=== PATIENT | male | born 1950 | race Two or more races ===

== ENCOUNTER 2021-08-21 19:17 | Inpatient (IN) | payer OTHER ==
[~2021-08-21] VITALS: Ht 170.2 cm; Wt 123.2 kg
[2021-08-21] MEDS ORDERED: SODIUM CHLORIDE 0.9% 1,000 ML IV ONE (20:00)
[2021-08-21 20:46] LABS: Basophils # (auto) 0 10 ^3/uL (0-0.2); Basophils % (auto) 0.1 % (0.0-2.0); Eosinophils # (auto) 0 10 ^3/uL (0-0.8); Hematocrit 49.1 % (41.0-53.0); Hemoglobin 16.2 g/dL (13.5-17.5); Lymphocytes # (auto) 0.9 10 ^3/uL (0.4-5.4); Lymphocytes % (auto) 10.4 % (10.0-50.0); Mean Corpuscular Hemoglobin 29.4 pg (28.0-32.0); Mean Corpuscular Hgb Conc. 32.9 g/dL (32.0-36.0); Mean Corpuscular Volume 89.3 fL (80.0-100.0); Monocytes # (auto) 0.8 10 ^3/uL (0-1.3); Monocytes % (auto) 9.3 % (0.0-12.0); Neutrophils # (auto) 6.7 10 ^3/uL (1.6-8.6); Neutrophils % (auto) 80.2 % (37.0-80.0); Nucleated Red Blood Cells % 0.3 %; Red Cell Distribution Width 13.3 % (11.8-14.3); White Blood Cell 8.4 10^3/uL (4.4-10.8)
[2021-08-21 21:13] LABS: Albumin 2.4 g/dL (3.4-5.0); Calcium 7.4 mg/dL (8.5-10.1); Potassium 4.7 mmol/L (3.5-5.1)
[2021-08-21 21:21] LABS: Bilirubin, Total 1.3 mg/dL (0.2-1.0); Total Protein 5.8 g/dL (6.4-8.2)
[2021-08-21 21:23] LABS: BUN/Creatinine Ratio 44.9; Magnesium 4.2 mg/dL (1.6-2.6)
[2021-08-21] MEDS ORDERED: DEXTROSE (50%) 50ML SYRG IV PRN (22:15)
[2021-08-21] MEDS ORDERED: InsuLIN R (HUMAN) 100 UNITS in SODIUM CHL 0.9% 99 ML IV SCH (22:15)
[2021-08-21] MEDS ORDERED: cefTRIAXone 1GM/50ML D5W 50 ML IV ONE (22:15)
[2021-08-21] MEDS: ACCU-CHEK COMFORT CURVE STRIP VI SCH (23:14)
[2021-08-21] MEDS ORDERED: InsuLIN REG 1unit/0.01ml Soln (100units/ml) ONE (23:30)
[2021-08-21 23:37] LABS: Calcium 7.2 mg/dL (8.5-10.1); Potassium 4.3 mmol/L (3.5-5.1)
[2021-08-21 23:46] LABS: BUN/Creatinine Ratio 44.8
[2021-08-22] MEDS ORDERED: SODIUM CHLORIDE 0.9% 1,000 ML IV ONE (00:30)
[2021-08-22] MEDS: ACCU-CHEK COMFORT CURVE STRIP VI SCH ×7 (00:50→20:58)
[2021-08-22] MEDS ORDERED: InsuLIN R (HUMAN) 100 UNITS in SODIUM CHL 0.9% 99 ML IV SCH (01:30)
[2021-08-22] MEDS ORDERED: DEXTROSE (50%) 50ML SYRG IV PRN ×2 (01:30→05:30)
[2021-08-22] MEDS ORDERED: SODIUM CHLORIDE 0.9% 1,000 ML IV SCH ×2 (04:15→05:30)
[2021-08-22] MEDS ORDERED: ACETAMINOPHEN 500 MG TAB PO ONE (05:15)
[2021-08-22] MEDS ORDERED: NITROGLYCERIN 0.4 MG SL TAB SL PRN (05:30)
[2021-08-22] MEDS ORDERED: MORPHINE SULFATE INJECTION 2 MG/ML SYRG IV PRN (05:30)
[2021-08-22] MEDS ORDERED: ONDANSETRON HCL 4 MG/2 ML VIAL IV PRN (05:30)
[2021-08-22] MEDS ORDERED: ALBUTEROL SULF HFA 90MCG INH 200DOSE IN PRN (05:30)
[2021-08-22] MEDS ORDERED: ACETAMINOPHEN 650 MG RECT SUPP PR ONE (06:00)
[2021-08-22 06:24] LABS: Urine Bacteria NONE SEEN /hpf (None Seen); Urine Blood 2+ /uL (Negative); Urine Hyaline Cast MANY /lpf (0 - 2); Urine Mucus FEW (None Seen); Urine Specific Gravity 1.016 (1.001-1.035); Urine WBC 15 /hpf (0 - 3)
[2021-08-22] MEDS ORDERED: SUCCINYLCHOLINE CHLORIDE 20 MG/ML 10ML VIAL IV ONE (06:45)
[2021-08-22] MEDS ORDERED: ETOMIDATE (2MG/ML) 20ML VIAL IV ONE (06:45)
[2021-08-22] MEDS: MIDAZOLAM DRIP 50 mg/50mL 50 ML IV SCH (07:05)
[2021-08-22 07:08] VITALS: BP 101/70
[2021-08-22] MEDS ORDERED: EPINEPHrine HCL 1 MG/10 ML SYRG ONE (07:09)
[2021-08-22] MEDS: NOREPINEPHRINE 8 MG/250ML KIT 250 ML IV SCH (07:20)
[2021-08-22] MEDS ORDERED: NOREPINEPHRINE 8 MG/250ML KIT 250 ML IV ONE (07:34)
[2021-08-22] MEDS: InsuLIN REG 1unit/0.01ml Soln (100units/ml) SC SCH ×4 (08:26→21:10)
[2021-08-22 08:30] LABS: Lactic Acid w/Reflex 3.4 mmol/L (0.4-2.0)
[2021-08-22 09:02] LABS: Magnesium 2.9 mg/dL (1.6-2.6)
[2021-08-22] MEDS: cefTRIAXone 1GM/50ML D5W 50 ML IV SCH (09:09)
[2021-08-22 09:13] LABS: CRP High Sensitivity 18.1 mg/dL (< 0.3)
[2021-08-22] MEDS: ZINC SULFATE 220mg CAP or TAB PO SCH (09:56)
[2021-08-22] MEDS: ENOXAPARIN SOD 40 MG/0.4 ML SYRINGE SC SCH (09:56)
[2021-08-22] MEDS: CHOLECALCIFEROL (VITD3) 2,000 UNIT CAP/TAB PO SCH (09:56)
[2021-08-22] MEDS: ASCORBIC ACID 1,000 MG TAB PO SCH (09:56)
[2021-08-22] MEDS: DexAMETHasone SOD PHOS 10MG/1ML VIAL INJ IV SCH (09:56)
[2021-08-22] MEDS ORDERED: BUDESONIDE (INHALATION) 180 MCG IH IN SCH (10:00)
[2021-08-22] MEDS ORDERED: PANTOPRAZOLE 40 MG TAB PO SCH (10:00)
[2021-08-22] MEDS ORDERED: ENOXAPARIN SOD 30 MG/0.3 ML SYRINGE SC SCH (10:00)
[2021-08-22 10:10] VITALS: BP 99/54
[2021-08-22] MEDS: AZITHROMYCIN 500MG/ 250ML 250 ML IV SCH (10:16)
[2021-08-22 14:00] VITALS: BP 112/57
[2021-08-22] MEDS: SODIUM CHLORIDE 0.9% 1,000 ML IV SCH (14:26)
[2021-08-22] MEDS ORDERED: PANTOPRAZOLE 40 MG/10 ML VIAL INJ IV ONE (14:30)
[2021-08-22 18:30] VITALS: BP 109/55
[2021-08-22 23:00] VITALS: BP 123/55
[2021-08-23] VITALS (8 sets, daily range): BP systolic 107–133; BP diastolic 50–69
[2021-08-23] MEDS: ACCU-CHEK COMFORT CURVE STRIP VI SCH ×6 (02:25→20:57)
[2021-08-23] MEDS: InsuLIN REG 1unit/0.01ml Soln (100units/ml) SC SCH ×6 (02:32→21:03)
[2021-08-23] MEDS: SODIUM CHLORIDE 0.9% 1,000 ML IV SCH ×2 (03:53→18:38)
[2021-08-23 06:51] LABS: Basophils # (auto) 0.1 10 ^3/uL (0-0.2); Basophils % (auto) 0.6 % (0.0-2.0); Eosinophils # (auto) 0 10 ^3/uL (0-0.8); Hematocrit 42.8 % (41.0-53.0); Hemoglobin 14.6 g/dL (13.5-17.5); Lymphocytes # (auto) 0.5 10 ^3/uL (0.4-5.4); Lymphocytes % (auto) 3.7 % (10.0-50.0); Mean Corpuscular Hemoglobin 29.9 pg (28.0-32.0); Mean Corpuscular Volume 87.9 fL (80.0-100.0); Monocytes # (auto) 0.7 10 ^3/uL (0-1.3); Monocytes % (auto) 5.3 % (0.0-12.0); Neutrophils % (auto) 90.4 % (37.0-80.0); Nucleated Red Blood Cells % 0.1 %; Red Blood Cells 4.87 10^6/uL (4.5-5.90); Red Cell Distribution Width 13.8 % (11.8-14.3); White Blood Cell 13.3 10^3/uL (4.4-10.8)
[2021-08-23 07:09] LABS: Potassium 4.6 mmol/L (3.5-5.1)
[2021-08-23 07:13] LABS: BUN/Creatinine Ratio 51.4; Bilirubin, Total 0.7 mg/dL (0.2-1.0)
[2021-08-23] MEDS: ACETAMINOPHEN 325 MG TAB PO PRN ×2 (07:17→18:39)
[2021-08-23 08:11] LABS: Magnesium 4.6 mg/dL (1.6-2.6)
[2021-08-23] MEDS: NOREPINEPHRINE 8 MG/250ML KIT 250 ML IV SCH (08:30)
[2021-08-23] MEDS: cefTRIAXone 1GM/50ML D5W 50 ML IV SCH (09:21)
[2021-08-23] MEDS: MIDAZOLAM DRIP 50 mg/50mL 50 ML IV SCH ×3 (09:50→18:04)
[2021-08-23] MEDS: DexAMETHasone SOD PHOS 10MG/1ML VIAL INJ IV SCH (09:51)
[2021-08-23] MEDS: CHOLECALCIFEROL (VITD3) 2,000 UNIT CAP/TAB PO SCH (09:52)
[2021-08-23] MEDS: AZITHROMYCIN 500MG/ 250ML 250 ML IV SCH (09:52)
[2021-08-23] MEDS: ASCORBIC ACID 1,000 MG TAB PO SCH (09:52)
[2021-08-23] MEDS: ZINC SULFATE 220mg CAP or TAB PO SCH (09:52)
[2021-08-23] MEDS: ENOXAPARIN SOD 40 MG/0.4 ML SYRINGE SC SCH (09:52)
[2021-08-23] MEDS: PANTOPRAZOLE 40 MG/10 ML VIAL INJ IV SCH (09:52)
[2021-08-23] MEDS: INSULIN LANTUS (GLARGINE) 1 /0.01ml (100units/ml) SC SCH (22:47)
[2021-08-24] MEDS: ACCU-CHEK COMFORT CURVE STRIP VI SCH ×6 (00:24→20:12)
[2021-08-24] MEDS: InsuLIN REG 1unit/0.01ml Soln (100units/ml) SC SCH ×6 (00:31→20:13)
[2021-08-24 01:13] VITALS: BP 127/63
[2021-08-24] MEDS: SODIUM CHLORIDE 0.9% 1,000 ML IV SCH ×2 (06:12→13:20)
[2021-08-24 06:56] VITALS: BP 133/64
[2021-08-24] MEDS: NOREPINEPHRINE 8 MG/250ML KIT 250 ML IV SCH (07:11)
[2021-08-24] MEDS: cefTRIAXone 1GM/50ML D5W 50 ML IV SCH (09:04)
[2021-08-24] MEDS: DexAMETHasone SOD PHOS 10MG/1ML VIAL INJ IV SCH (10:00)
[2021-08-24] MEDS: PANTOPRAZOLE 40 MG/10 ML VIAL INJ IV SCH (10:00)
[2021-08-24] MEDS: ZINC SULFATE 220mg CAP or TAB PO SCH (10:00)
[2021-08-24] MEDS: ENOXAPARIN SOD 40 MG/0.4 ML SYRINGE SC SCH (10:00)
[2021-08-24] MEDS: CHOLECALCIFEROL (VITD3) 2,000 UNIT CAP/TAB PO SCH (10:00)
[2021-08-24] MEDS: INSULIN LANTUS (GLARGINE) 1 /0.01ml (100units/ml) SC SCH ×2 (10:00→22:04)
[2021-08-24] MEDS: ASCORBIC ACID 1,000 MG TAB PO SCH (10:00)
[2021-08-24 10:15] VITALS: BP 133/66
[2021-08-24] MEDS: AZITHROMYCIN 500MG/ 250ML 250 ML IV SCH (11:44)
[2021-08-24] MEDS: MIDAZOLAM DRIP 50 mg/50mL 50 ML IV SCH ×2 (11:48→20:23)
[2021-08-24 14:00] VITALS: BP 128/65
[2021-08-24 18:34] VITALS: BP 153/73
[2021-08-24 22:14] VITALS: BP 125/64
[2021-08-25] VITALS (8 sets, daily range): BP systolic 111–159; BP diastolic 63–76
[2021-08-25] MEDS: ACCU-CHEK COMFORT CURVE STRIP VI SCH ×7 (00:41→23:40)
[2021-08-25] MEDS: InsuLIN REG 1unit/0.01ml Soln (100units/ml) SC SCH ×7 (00:43→23:57)
[2021-08-25] MEDS: MIDAZOLAM DRIP 50 mg/50mL 50 ML IV SCH ×3 (00:46→09:19)
[2021-08-25] MEDS: ACETAMINOPHEN 500 MG TAB PO PRN ×4 (03:07→23:18)
[2021-08-25 06:09] LABS: Calcium 7.6 mg/dL (8.5-10.1)
[2021-08-25 06:13] LABS: BUN/Creatinine Ratio 61.5
[2021-08-25 06:26] LABS: Basophils # (auto) 0 10 ^3/uL (0-0.2); Basophils % (auto) 0.1 % (0.0-2.0); Eosinophils # (auto) 0 10 ^3/uL (0-0.8); Hematocrit 41.5 % (41.0-53.0); Hemoglobin 14.2 g/dL (13.5-17.5); Lymphocytes # (auto) 0.3 10 ^3/uL (0.4-5.4); Lymphocytes % (auto) 4.2 % (10.0-50.0); Mean Corpuscular Hemoglobin 30.4 pg (28.0-32.0); Mean Corpuscular Hgb Conc. 34.2 g/dL (32.0-36.0); Mean Corpuscular Volume 89.1 fL (80.0-100.0); Monocytes # (auto) 0.7 10 ^3/uL (0-1.3); Neutrophils % (auto) 86.7 % (37.0-80.0); Nucleated Red Blood Cells % 0.3 %; Red Blood Cells 4.66 10^6/uL (4.5-5.90); Red Cell Distribution Width 13.6 % (11.8-14.3); White Blood Cell 8.1 10^3/uL (4.4-10.8)
[2021-08-25 06:38] LABS: Magnesium 4.7 mg/dL (1.6-2.6)
[2021-08-25] MEDS: NOREPINEPHRINE 8 MG/250ML KIT 250 ML IV SCH (07:00)
[2021-08-25] MEDS: SODIUM CHLORIDE 0.9% 1,000 ML IV SCH (09:21)
[2021-08-25] MEDS: cefTRIAXone 1GM/50ML D5W 50 ML IV SCH (09:49)
[2021-08-25] MEDS: CHOLECALCIFEROL (VITD3) 2,000 UNIT CAP/TAB PO SCH (09:54)
[2021-08-25] MEDS: ASCORBIC ACID 1,000 MG TAB PO SCH (09:54)
[2021-08-25] MEDS: DexAMETHasone SOD PHOS 10MG/1ML VIAL INJ IV SCH (09:54)
[2021-08-25] MEDS: PANTOPRAZOLE 40 MG/10 ML VIAL INJ IV SCH (10:06)
[2021-08-25] MEDS: INSULIN LANTUS (GLARGINE) 1 /0.01ml (100units/ml) SC SCH ×2 (10:07→22:03)
[2021-08-25] MEDS: ZINC SULFATE 220mg CAP or TAB PO SCH (10:12)
[2021-08-25] MEDS: ENOXAPARIN SOD 40 MG/0.4 ML SYRINGE SC SCH (10:12)
[2021-08-25] MEDS: AZITHROMYCIN 500MG/ 250ML 250 ML IV SCH (10:12)
[2021-08-25] MEDS: SOD CHL 0.45% 1,000 ML IV SCH (12:49)
[2021-08-26] VITALS (64 sets, daily range): BP systolic 83–138; BP diastolic 36–65
[2021-08-26] MEDS: SOD CHL 0.45% 1,000 ML IV SCH (00:13)
[2021-08-26] MEDS: InsuLIN REG 1unit/0.01ml Soln (100units/ml) SC SCH ×5 (04:00→20:00)
[2021-08-26] MEDS: ACCU-CHEK COMFORT CURVE STRIP VI SCH ×5 (04:00→20:00)
[2021-08-26 06:59] LABS: Basophils # (auto) 0 10 ^3/uL (0-0.2); Basophils % (auto) 0.1 % (0.0-2.0); Eosinophils # (auto) 0 10 ^3/uL (0-0.8); Hematocrit 41.8 % (41.0-53.0); Hemoglobin 13.8 g/dL (13.5-17.5); Lymphocytes # (auto) 0.3 10 ^3/uL (0.4-5.4); Lymphocytes % (auto) 4.9 % (10.0-50.0); Mean Corpuscular Hemoglobin 29.7 pg (28.0-32.0); Mean Corpuscular Hgb Conc. 32.9 g/dL (32.0-36.0); Mean Corpuscular Volume 90.2 fL (80.0-100.0); Monocytes # (auto) 0.3 10 ^3/uL (0-1.3); Neutrophils # (auto) 5.4 10 ^3/uL (1.6-8.6); Nucleated Red Blood Cells % 0.3 %; Red Blood Cells 4.63 10^6/uL (4.5-5.90); Red Cell Distribution Width 13.8 % (11.8-14.3)
[2021-08-26 07:03] LABS: Potassium 4.9 mmol/L (3.5-5.1)
[2021-08-26 07:18] LABS: Albumin 1.7 g/dL (3.4-5.0); BUN/Creatinine Ratio 57.1; Bilirubin, Total 0.8 mg/dL (0.2-1.0); CRP High Sensitivity 14.4 mg/dL (< 0.3); Total Protein 5.9 g/dL (6.4-8.2)
[2021-08-26 07:29] LABS: Magnesium 4.5 mg/dL (1.6-2.6)
[2021-08-26] MEDS: NOREPINEPHRINE 8 MG/250ML KIT 250 ML IV SCH (07:30)
[2021-08-26] MEDS ORDERED: REMDESIVIR PER PHARMACY 0 ML IV SCH (09:15)
[2021-08-26] MEDS ORDERED: D5W 5% 1,000 ML IV SCH (09:15)
[2021-08-26] MEDS: cefTRIAXone 1GM/50ML D5W 50 ML IV SCH (09:56)
[2021-08-26] MEDS: DexAMETHasone SOD PHOS 10MG/1ML VIAL INJ IV SCH (09:58)
[2021-08-26] MEDS: PANTOPRAZOLE 40 MG/10 ML VIAL INJ IV SCH (09:58)
[2021-08-26] MEDS: MIDAZOLAM DRIP 50 mg/50mL 50 ML IV SCH ×4 (09:58→22:29)
[2021-08-26] MEDS: AZITHROMYCIN 500MG/ 250ML 250 ML IV SCH (09:58)
[2021-08-26] MEDS: ENOXAPARIN SOD 40 MG/0.4 ML SYRINGE SC SCH (09:59)
[2021-08-26] MEDS: CHOLECALCIFEROL (VITD3) 2,000 UNIT CAP/TAB PO SCH (09:59)
[2021-08-26] MEDS: ZINC SULFATE 220mg CAP or TAB PO SCH (09:59)
[2021-08-26] MEDS: ASCORBIC ACID 1,000 MG TAB PO SCH (09:59)
[2021-08-26] MEDS: INSULIN LANTUS (GLARGINE) 1 /0.01ml (100units/ml) SC SCH ×2 (10:04→21:48)
[2021-08-26] MEDS ORDERED: PROPOFOL 100 ML IV ONE (11:51)
[2021-08-26] MEDS: PROPOFOL 100 ML IV SCH ×2 (12:21→16:47)
[2021-08-26] MEDS ORDERED: REMDESIVIR 200 MG in NS 210ml LOADING DOSE ADULT IV ONE (15:00)
[2021-08-26] MEDS ORDERED: VANCOMYCIN PER PHARMACY 0 MG IV SCH (18:00)
[2021-08-26] MEDS: VANCOMYCIN 1GM/250ML 250 ML IV SCH (18:40)
[2021-08-27] VITALS (102 sets, daily range): BP systolic 99–142; BP diastolic 35–58
[2021-08-27] MEDS: NOREPINEPHRINE 8 MG/250ML KIT 250 ML IV SCH (00:06)
[2021-08-27] MEDS: MIDAZOLAM DRIP 50 mg/50mL 50 ML IV SCH ×2 (02:38→22:00)
[2021-08-27] MEDS: ACCU-CHEK COMFORT CURVE STRIP VI SCH ×6 (04:00→20:00)
[2021-08-27] MEDS: InsuLIN REG 1unit/0.01ml Soln (100units/ml) SC SCH ×6 (04:00→20:00)
[2021-08-27 04:31] LABS: Basophils # (auto) 0 10 ^3/uL (0-0.2); Basophils % (auto) 0.5 % (0.0-2.0); Eosinophils # (auto) 0 10 ^3/uL (0-0.8); Eosinophils % (auto) 0.5 % (0.0-7.0); Hematocrit 41.4 % (41.0-53.0); Hemoglobin 13.4 g/dL (13.5-17.5); Lymphocytes # (auto) 0.3 10 ^3/uL (0.4-5.4); Lymphocytes % (auto) 4.1 % (10.0-50.0); Mean Corpuscular Hemoglobin 29.3 pg (28.0-32.0); Mean Corpuscular Hgb Conc. 32.4 g/dL (32.0-36.0); Mean Corpuscular Volume 90.6 fL (80.0-100.0); Monocytes # (auto) 0.3 10 ^3/uL (0-1.3); Monocytes % (auto) 3.9 % (0.0-12.0); Neutrophils # (auto) 7.1 10 ^3/uL (1.6-8.6); Nucleated Red Blood Cells % 0.1 %; Red Blood Cells 4.57 10^6/uL (4.5-5.90); Red Cell Distribution Width 14.3 % (11.8-14.3); White Blood Cell 7.8 10^3/uL (4.4-10.8)
[2021-08-27 04:57] LABS: Albumin 1.5 g/dL (3.4-5.0); BUN/Creatinine Ratio 60.9; Calcium 7.8 mg/dL (8.5-10.1)
[2021-08-27 05:00] LABS: Bilirubin, Total 0.6 mg/dL (0.2-1.0); Total Protein 5.1 g/dL (6.4-8.2)
[2021-08-27 05:08] LABS: Potassium 5.7 mmol/L (3.5-5.1)
[2021-08-27] MEDS ORDERED: SODIUM ZIRCONIUM CYCL 10 GM PAK GT ONE ×2 (05:45→19:30)
[2021-08-27] MEDS ORDERED: SODIUM ZIRCONIUM CYCL 10 GM PAK ONE (05:52)
[2021-08-27] MEDS: FREE WATER GT SCH ×5 (06:00→22:00)
[2021-08-27] MEDS: PROPOFOL 100 ML IV SCH ×2 (06:13→21:00)
[2021-08-27] MEDS: VANCOMYCIN 1GM/250ML 250 ML IV SCH ×2 (06:32→19:05)
[2021-08-27] MEDS: SODIUM ZIRCONIUM CYCL 10 GM PAK GT SCH (12:37)
[2021-08-27] MEDS: cefTRIAXone 1GM/50ML D5W 50 ML IV SCH (12:37)
[2021-08-27] MEDS: DexAMETHasone SOD PHOS 10MG/1ML VIAL INJ IV SCH (12:38)
[2021-08-27] MEDS: PANTOPRAZOLE 40 MG/10 ML VIAL INJ IV SCH (12:38)
[2021-08-27] MEDS: ASCORBIC ACID 1,000 MG TAB PO SCH (12:38)
[2021-08-27] MEDS: ZINC SULFATE 220mg CAP or TAB PO SCH (12:38)
[2021-08-27] MEDS: CHOLECALCIFEROL (VITD3) 2,000 UNIT CAP/TAB PO SCH (12:39)
[2021-08-27] MEDS: INSULIN LANTUS (GLARGINE) 1 /0.01ml (100units/ml) SC SCH ×2 (12:39→22:00)
[2021-08-27] MEDS: REMDESIVIR 100mg 100 MG in SODIUM CHL 0.9% 230 ML IV SCH (15:00)
[2021-08-27] MEDS: DOPamine 1600MCG/ML D5W 250 ML IV SCH (19:30)
[2021-08-27] MEDS ORDERED: Glucerna 1.2 Cal 1Liter BOTTLE GT SCH (19:45)
[2021-08-28] VITALS (101 sets, daily range): BP systolic 98–138; BP diastolic 39–65
[2021-08-28] MEDS: FREE WATER GT SCH ×6 (02:00→21:50)
[2021-08-28] MEDS: MIDAZOLAM DRIP 50 mg/50mL 50 ML IV SCH ×4 (02:15→18:45)
[2021-08-28 03:45] LABS: Basophils # (auto) 0 10 ^3/uL (0-0.2); Basophils % (auto) 0.1 % (0.0-2.0); Eosinophils # (auto) 0 10 ^3/uL (0-0.8); Hematocrit 40.9 % (41.0-53.0); Hemoglobin 13.3 g/dL (13.5-17.5); Lymphocytes # (auto) 0.2 10 ^3/uL (0.4-5.4); Lymphocytes % (auto) 2.7 % (10.0-50.0); Mean Corpuscular Hemoglobin 29.5 pg (28.0-32.0); Mean Corpuscular Hgb Conc. 32.6 g/dL (32.0-36.0); Mean Corpuscular Volume 90.5 fL (80.0-100.0); Monocytes # (auto) 0.2 10 ^3/uL (0-1.3); Monocytes % (auto) 3.1 % (0.0-12.0); Neutrophils # (auto) 6.8 10 ^3/uL (1.6-8.6); Neutrophils % (auto) 94.1 % (37.0-80.0); Nucleated Red Blood Cells % 0.1 %; Red Blood Cells 4.51 10^6/uL (4.5-5.90); Red Cell Distribution Width 13.5 % (11.8-14.3); White Blood Cell 7.2 10^3/uL (4.4-10.8)
[2021-08-28 04:00] LABS: Albumin 1.6 g/dL (3.4-5.0); Magnesium 3.4 mg/dL (1.6-2.6); Potassium 5.4 mmol/L (3.5-5.1)
[2021-08-28] MEDS: InsuLIN REG 1unit/0.01ml Soln (100units/ml) SC SCH ×6 (04:00→19:44)
[2021-08-28] MEDS: ACCU-CHEK COMFORT CURVE STRIP VI SCH ×6 (04:00→19:45)
[2021-08-28 04:03] LABS: BUN/Creatinine Ratio 68.3
[2021-08-28 04:15] LABS: Bilirubin, Total 0.4 mg/dL (0.2-1.0)
[2021-08-28] MEDS: PROPOFOL 100 ML IV SCH ×2 (05:00→22:30)
[2021-08-28] MEDS: VANCOMYCIN 1GM/250ML 250 ML IV SCH ×2 (06:47→19:00)
[2021-08-28] MEDS: NOREPINEPHRINE 8 MG/250ML KIT 250 ML IV SCH (07:30)
[2021-08-28] MEDS: DOPamine 1600MCG/ML D5W 250 ML IV SCH (08:47)
[2021-08-28] MEDS: cefTRIAXone 1GM/50ML D5W 50 ML IV SCH (09:13)
[2021-08-28] MEDS: SODIUM ZIRCONIUM CYCL 10 GM PAK GT SCH (09:58)
[2021-08-28] MEDS: CHOLECALCIFEROL (VITD3) 2,000 UNIT CAP/TAB PO SCH (09:58)
[2021-08-28] MEDS: PANTOPRAZOLE 40 MG/10 ML VIAL INJ IV SCH (09:58)
[2021-08-28] MEDS: ZINC SULFATE 220mg CAP or TAB PO SCH (09:59)
[2021-08-28] MEDS: DexAMETHasone SOD PHOS 10MG/1ML VIAL INJ IV SCH (09:59)
[2021-08-28] MEDS: ASCORBIC ACID 1,000 MG TAB PO SCH (09:59)
[2021-08-28] MEDS: ENOXAPARIN SOD 30 MG/0.3 ML SYRINGE SC SCH (10:00)
[2021-08-28] MEDS: INSULIN LANTUS (GLARGINE) 1 /0.01ml (100units/ml) SC SCH ×2 (10:58→21:50)
[2021-08-28] MEDS: REMDESIVIR 100mg 100 MG in SODIUM CHL 0.9% 230 ML IV SCH (14:53)
[2021-08-28] MEDS ORDERED: FUROSEMIDE 40 MG/4 ML VIAL IV ONE (18:45)
[2021-08-29] VITALS (100 sets, daily range): BP systolic 85–152; BP diastolic 44–65
[2021-08-29] MEDS: DOPamine 1600MCG/ML D5W 250 ML IV SCH ×2 (00:47→11:21)
[2021-08-29] MEDS: FREE WATER GT SCH ×6 (02:00→22:00)
[2021-08-29 03:51] LABS: Basophils # (auto) 0 10 ^3/uL (0-0.2); Basophils % (auto) 0.2 % (0.0-2.0); Eosinophils # (auto) 0 10 ^3/uL (0-0.8); Eosinophils % (auto) 0.1 % (0.0-7.0); Hematocrit 40.1 % (41.0-53.0); Hemoglobin 13.5 g/dL (13.5-17.5); Lymphocytes # (auto) 0.3 10 ^3/uL (0.4-5.4); Lymphocytes % (auto) 4.2 % (10.0-50.0); Mean Corpuscular Hemoglobin 30.2 pg (28.0-32.0); Mean Corpuscular Hgb Conc. 33.7 g/dL (32.0-36.0); Mean Corpuscular Volume 89.7 fL (80.0-100.0); Monocytes # (auto) 0.3 10 ^3/uL (0-1.3); Monocytes % (auto) 4.5 % (0.0-12.0); Red Blood Cells 4.48 10^6/uL (4.5-5.90); Red Cell Distribution Width 13.6 % (11.8-14.3); White Blood Cell 7.7 10^3/uL (4.4-10.8)
[2021-08-29] MEDS: MIDAZOLAM DRIP 50 mg/50mL 50 ML IV SCH ×4 (04:00→23:30)
[2021-08-29] MEDS: ACCU-CHEK COMFORT CURVE STRIP VI SCH ×6 (04:00→20:00)
[2021-08-29] MEDS: InsuLIN REG 1unit/0.01ml Soln (100units/ml) SC SCH ×6 (04:00→20:00)
[2021-08-29 04:09] LABS: Albumin 1.5 g/dL (3.4-5.0); Calcium 7.8 mg/dL (8.5-10.1); Magnesium 3.2 mg/dL (1.6-2.6); Potassium 4.9 mmol/L (3.5-5.1)
[2021-08-29 04:11] LABS: BUN/Creatinine Ratio 68.1
[2021-08-29 04:14] LABS: Bilirubin, Total 0.9 mg/dL (0.2-1.0); Total Protein 4.9 g/dL (6.4-8.2)
[2021-08-29] MEDS: PROPOFOL 100 ML IV SCH ×4 (06:00→18:21)
[2021-08-29] MEDS: VANCOMYCIN 1GM/250ML 250 ML IV SCH ×2 (06:57→18:20)
[2021-08-29] MEDS: NOREPINEPHRINE 8 MG/250ML KIT 250 ML IV SCH (07:30)
[2021-08-29] MEDS: SODIUM ZIRCONIUM CYCL 10 GM PAK GT SCH (08:50)
[2021-08-29] MEDS: ASCORBIC ACID 1,000 MG TAB PO SCH (08:51)
[2021-08-29] MEDS: CHOLECALCIFEROL (VITD3) 2,000 UNIT CAP/TAB PO SCH (08:52)
[2021-08-29] MEDS: ACETAMINOPHEN 325 MG TAB PO PRN (08:52)
[2021-08-29] MEDS: ZINC SULFATE 220mg CAP or TAB PO SCH (08:52)
[2021-08-29] MEDS: PANTOPRAZOLE 40 MG/10 ML VIAL INJ IV SCH (08:54)
[2021-08-29] MEDS: cefTRIAXone 1GM/50ML D5W 50 ML IV SCH (08:54)
[2021-08-29] MEDS: ENOXAPARIN SOD 30 MG/0.3 ML SYRINGE SC SCH (08:55)
[2021-08-29] MEDS: DexAMETHasone SOD PHOS 10MG/1ML VIAL INJ IV SCH (08:55)
[2021-08-29] MEDS ORDERED: FUROSEMIDE 40 MG/4 ML VIAL IV ONE (10:30)
[2021-08-29] MEDS: INSULIN LANTUS (GLARGINE) 1 /0.01ml (100units/ml) SC SCH ×2 (12:29→22:00)
[2021-08-30] VITALS (100 sets, daily range): BP systolic 65–139; BP diastolic 39–99
[2021-08-30] MEDS: DOPamine 1600MCG/ML D5W 250 ML IV SCH ×2 (00:38→13:55)
[2021-08-30] MEDS: FREE WATER GT SCH ×6 (02:00→22:33)
[2021-08-30] MEDS: InsuLIN REG 1unit/0.01ml Soln (100units/ml) SC SCH ×6 (03:40→20:10)
[2021-08-30] MEDS: ACCU-CHEK COMFORT CURVE STRIP VI SCH ×6 (03:48→20:09)
[2021-08-30] MEDS: PROPOFOL 100 ML IV SCH ×6 (03:49→22:38)
[2021-08-30 04:55] LABS: Basophils # (auto) 0 10 ^3/uL (0-0.2); Basophils % (auto) 0.1 % (0.0-2.0); Eosinophils # (auto) 0.1 10 ^3/uL (0-0.8); Eosinophils % (auto) 0.6 % (0.0-7.0); Hematocrit 41.1 % (41.0-53.0); Hemoglobin 13.8 g/dL (13.5-17.5); Lymphocytes # (auto) 0.4 10 ^3/uL (0.4-5.4); Lymphocytes % (auto) 3.9 % (10.0-50.0); Mean Corpuscular Hemoglobin 29.7 pg (28.0-32.0); Mean Corpuscular Hgb Conc. 33.5 g/dL (32.0-36.0); Mean Corpuscular Volume 88.8 fL (80.0-100.0); Monocytes # (auto) 0.3 10 ^3/uL (0-1.3); Monocytes % (auto) 2.7 % (0.0-12.0); Neutrophils # (auto) 10.4 10 ^3/uL (1.6-8.6); Neutrophils % (auto) 92.7 % (37.0-80.0); Nucleated Red Blood Cells % 0.1 %; Red Blood Cells 4.63 10^6/uL (4.5-5.90); Red Cell Distribution Width 13.6 % (11.8-14.3); White Blood Cell 11.3 10^3/uL (4.4-10.8)
[2021-08-30 05:28] LABS: Albumin 1.4 g/dL (3.4-5.0); BUN/Creatinine Ratio 76.7; Magnesium 3.2 mg/dL (1.6-2.6); Potassium 4.5 mmol/L (3.5-5.1)
[2021-08-30 05:31] LABS: Bilirubin, Total 0.9 mg/dL (0.2-1.0); Total Protein 4.8 g/dL (6.4-8.2)
[2021-08-30] MEDS: ACETAMINOPHEN 500 MG TAB PO PRN (06:08)
[2021-08-30] MEDS: VANCOMYCIN 1GM/250ML 250 ML IV SCH ×2 (06:30→18:36)
[2021-08-30] MEDS: NOREPINEPHRINE 8 MG/250ML KIT 250 ML IV SCH ×2 (07:30→22:37)
[2021-08-30] MEDS: SODIUM ZIRCONIUM CYCL 10 GM PAK GT SCH (08:22)
[2021-08-30] MEDS: CHOLECALCIFEROL (VITD3) 2,000 UNIT CAP/TAB PO SCH (09:09)
[2021-08-30] MEDS: ASCORBIC ACID 1,000 MG TAB PO SCH (09:09)
[2021-08-30] MEDS: PANTOPRAZOLE 40 MG/10 ML VIAL INJ IV SCH (09:09)
[2021-08-30] MEDS: ZINC SULFATE 220mg CAP or TAB PO SCH (09:09)
[2021-08-30] MEDS: DexAMETHasone SOD PHOS 10MG/1ML VIAL INJ IV SCH (09:09)
[2021-08-30] MEDS: FUROSEMIDE 40 MG/4 ML VIAL IV SCH (09:10)
[2021-08-30] MEDS: ENOXAPARIN SOD 30 MG/0.3 ML SYRINGE SC SCH (09:10)
[2021-08-30] MEDS: cefTRIAXone 1GM/50ML D5W 50 ML IV SCH (09:10)
[2021-08-30] MEDS: INSULIN LANTUS (GLARGINE) 1 /0.01ml (100units/ml) SC SCH ×2 (10:28→22:35)
[2021-08-30] MEDS ORDERED: LACTULOSE 20Gm/30ML SOLN PO ONE (11:00)
[2021-08-30] MEDS ORDERED: DOCUSATE ORAL LIQUID 100 MG/10 ML UD GT ONE (11:00)
[2021-08-30] MEDS: MIDAZOLAM DRIP 50 mg/50mL 50 ML IV SCH ×2 (11:10→17:07)
[2021-08-30] MEDS: DOCUSATE ORAL LIQUID 100 MG/10 ML UD GT SCH (22:34)
[2021-08-31] VITALS (96 sets, daily range): BP systolic 81–180; BP diastolic 42–113
[2021-08-31] MEDS: ACCU-CHEK COMFORT CURVE STRIP VI SCH ×6 (00:15→20:16)
[2021-08-31] MEDS: InsuLIN REG 1unit/0.01ml Soln (100units/ml) SC SCH ×6 (00:16→20:16)
[2021-08-31] MEDS: MIDAZOLAM DRIP 50 mg/50mL 50 ML IV SCH ×6 (00:17→23:07)
[2021-08-31] MEDS: PROPOFOL 100 ML IV SCH ×7 (00:18→23:42)
[2021-08-31] MEDS: FREE WATER GT SCH ×6 (02:21→22:06)
[2021-08-31] MEDS: DOPamine 1600MCG/ML D5W 250 ML IV SCH ×2 (03:12→16:29)
[2021-08-31] MEDS: ACETAMINOPHEN 500 MG TAB PO PRN (04:30)
[2021-08-31 05:13] LABS: Basophils # (auto) 0 10 ^3/uL (0-0.2); Basophils % (auto) 0.1 % (0.0-2.0); Eosinophils # (auto) 0.1 10 ^3/uL (0-0.8); Eosinophils % (auto) 0.5 % (0.0-7.0); Hematocrit 41.4 % (41.0-53.0); Hemoglobin 13.8 g/dL (13.5-17.5); Lymphocytes # (auto) 0.3 10 ^3/uL (0.4-5.4); Lymphocytes % (auto) 2.5 % (10.0-50.0); Mean Corpuscular Hemoglobin 29.8 pg (28.0-32.0); Mean Corpuscular Hgb Conc. 33.3 g/dL (32.0-36.0); Mean Corpuscular Volume 89.5 fL (80.0-100.0); Monocytes # (auto) 0.2 10 ^3/uL (0-1.3); Monocytes % (auto) 1.7 % (0.0-12.0); Neutrophils # (auto) 10.9 10 ^3/uL (1.6-8.6); Neutrophils % (auto) 95.2 % (37.0-80.0); Nucleated Red Blood Cells % 0.2 %; Red Blood Cells 4.62 10^6/uL (4.5-5.90); Red Cell Distribution Width 13.5 % (11.8-14.3); White Blood Cell 11.4 10^3/uL (4.4-10.8)
[2021-08-31 05:43] LABS: Calcium 8.8 mg/dL (8.5-10.1); Magnesium 2.9 mg/dL (1.6-2.6); Potassium 4.5 mmol/L (3.5-5.1)
[2021-08-31] MEDS: VANCOMYCIN 1GM/250ML 250 ML IV SCH ×2 (06:33→18:31)
[2021-08-31] MEDS: cefTRIAXone 1GM/50ML D5W 50 ML IV SCH (09:01)
[2021-08-31] MEDS: DOCUSATE ORAL LIQUID 100 MG/10 ML UD GT SCH ×2 (09:02→22:06)
[2021-08-31] MEDS: LACTULOSE 20Gm/30ML SOLN PO SCH (09:02)
[2021-08-31] MEDS: CHOLECALCIFEROL (VITD3) 2,000 UNIT CAP/TAB PO SCH (09:02)
[2021-08-31] MEDS: ZINC SULFATE 220mg CAP or TAB PO SCH (09:02)
[2021-08-31] MEDS: PANTOPRAZOLE 40 MG/10 ML VIAL INJ IV SCH (09:02)
[2021-08-31] MEDS: ASCORBIC ACID 1,000 MG TAB PO SCH (09:02)
[2021-08-31] MEDS: FUROSEMIDE 40 MG/4 ML VIAL IV SCH (09:03)
[2021-08-31] MEDS: DexAMETHasone SOD PHOS 10MG/1ML VIAL INJ IV SCH (09:03)
[2021-08-31] MEDS: SODIUM ZIRCONIUM CYCL 10 GM PAK GT SCH (10:00)
[2021-08-31] MEDS: ENOXAPARIN SOD 30 MG/0.3 ML SYRINGE SC SCH (10:00)
[2021-08-31] MEDS: INSULIN LANTUS (GLARGINE) 1 /0.01ml (100units/ml) SC SCH ×2 (10:10→22:07)
[2021-08-31] MEDS: NOREPINEPHRINE 8 MG/250ML KIT 250 ML IV SCH (16:12)
[2021-09-01] VITALS (88 sets, daily range): BP systolic 107–133; BP diastolic 47–59
[2021-09-01] MEDS: ACCU-CHEK COMFORT CURVE STRIP VI SCH ×6 (00:34→20:19)
[2021-09-01] MEDS: InsuLIN REG 1unit/0.01ml Soln (100units/ml) SC SCH ×6 (00:35→20:21)
[2021-09-01] MEDS: FREE WATER GT SCH ×6 (02:19→21:58)
[2021-09-01] MEDS: PROPOFOL 100 ML IV SCH ×4 (02:19→23:02)
[2021-09-01 04:33] LABS: Basophils # (auto) 0.1 10 ^3/uL (0-0.2); Basophils % (auto) 0.6 % (0.0-2.0); Eosinophils # (auto) 0 10 ^3/uL (0-0.8); Eosinophils % (auto) 0.2 % (0.0-7.0); Hematocrit 37.9 % (41.0-53.0); Hemoglobin 12.6 g/dL (13.5-17.5); Lymphocytes # (auto) 0.4 10 ^3/uL (0.4-5.4); Lymphocytes % (auto) 2.2 % (10.0-50.0); Mean Corpuscular Hemoglobin 29.6 pg (28.0-32.0); Mean Corpuscular Hgb Conc. 33.2 g/dL (32.0-36.0); Mean Corpuscular Volume 89.2 fL (80.0-100.0); Monocytes # (auto) 0.6 10 ^3/uL (0-1.3); Monocytes % (auto) 3.1 % (0.0-12.0); Neutrophils # (auto) 18.6 10 ^3/uL (1.6-8.6); Neutrophils % (auto) 93.9 % (37.0-80.0); Red Blood Cells 4.25 10^6/uL (4.5-5.90); Red Cell Distribution Width 13.6 % (11.8-14.3); White Blood Cell 19.8 10^3/uL (4.4-10.8)
[2021-09-01 04:52] LABS: Albumin 1.2 g/dL (3.4-5.0); BUN/Creatinine Ratio 65.8; Potassium 4.9 mmol/L (3.5-5.1)
[2021-09-01 04:55] LABS: Bilirubin, Total 0.8 mg/dL (0.2-1.0); Total Protein 5.5 g/dL (6.4-8.2)
[2021-09-01] MEDS: DOPamine 1600MCG/ML D5W 250 ML IV SCH ×2 (04:57→19:03)
[2021-09-01] MEDS: VANCOMYCIN 1GM/250ML 250 ML IV SCH ×2 (06:03→19:37)
[2021-09-01] MEDS: MIDAZOLAM DRIP 50 mg/50mL 50 ML IV SCH ×3 (06:43→23:03)
[2021-09-01] MEDS: cefTRIAXone 1GM/50ML D5W 50 ML IV SCH (08:07)
[2021-09-01] MEDS: DOCUSATE ORAL LIQUID 100 MG/10 ML UD GT SCH ×2 (08:09→21:59)
[2021-09-01] MEDS: SODIUM ZIRCONIUM CYCL 10 GM PAK GT SCH (08:10)
[2021-09-01] MEDS: DexAMETHasone SOD PHOS 10MG/1ML VIAL INJ IV SCH (08:11)
[2021-09-01] MEDS: PANTOPRAZOLE 40 MG/10 ML VIAL INJ IV SCH (08:11)
[2021-09-01] MEDS: FUROSEMIDE 40 MG/4 ML VIAL IV SCH (08:11)
[2021-09-01] MEDS: LACTULOSE 20Gm/30ML SOLN PO SCH (08:12)
[2021-09-01] MEDS: ZINC SULFATE 220mg CAP or TAB PO SCH (08:12)
[2021-09-01] MEDS: ASCORBIC ACID 1,000 MG TAB PO SCH (08:13)
[2021-09-01] MEDS: ENOXAPARIN SOD 30 MG/0.3 ML SYRINGE SC SCH (08:13)
[2021-09-01] MEDS: CHOLECALCIFEROL (VITD3) 2,000 UNIT CAP/TAB PO SCH (08:13)
[2021-09-01] MEDS: INSULIN LANTUS (GLARGINE) 1 /0.01ml (100units/ml) SC SCH ×2 (08:48→21:59)
[2021-09-01] MEDS: ACETAMINOPHEN 500 MG TAB PO PRN (23:30)
[2021-09-02] VITALS (38 sets, daily range): BP systolic 113–139; BP diastolic 44–56
[2021-09-02] MEDS: InsuLIN REG 1unit/0.01ml Soln (100units/ml) SC SCH ×6 (00:32→21:38)
[2021-09-02] MEDS: ACCU-CHEK COMFORT CURVE STRIP VI SCH ×6 (00:32→21:36)
[2021-09-02] MEDS: FREE WATER GT SCH ×6 (02:00→22:00)
[2021-09-02] MEDS: MIDAZOLAM DRIP 50 mg/50mL 50 ML IV SCH ×3 (02:26→17:14)
[2021-09-02] MEDS: PROPOFOL 100 ML IV SCH ×2 (02:27→09:10)
[2021-09-02 03:32] LABS: Eosinophils # (auto) 0.2 10 ^3/uL (0-0.8); Lymphocytes # (auto) 0.4 10 ^3/uL (0.4-5.4); Monocytes # (auto) 0.4 10 ^3/uL (0-1.3); Neutrophils # (auto) 12.2 10 ^3/uL (1.6-8.6); Nucleated Red Blood Cells % 0.1 %
[2021-09-02 03:34] LABS: Basophils # (auto) 0.1 10 ^3/uL (0-0.2); Basophils % (auto) 0.9 % (0.0-2.0); Eosinophils % (auto) 1.7 % (0.0-7.0); Hematocrit 34.9 % (41.0-53.0); Hemoglobin 11.8 g/dL (13.5-17.5); Mean Corpuscular Hemoglobin 29.9 pg (28.0-32.0); Mean Corpuscular Hgb Conc. 33.9 g/dL (32.0-36.0); Mean Corpuscular Volume 88.1 fL (80.0-100.0); Monocytes % (auto) 3.3 % (0.0-12.0); Neutrophils % (auto) 91.1 % (37.0-80.0); Red Blood Cells 3.97 10^6/uL (4.5-5.90); Red Cell Distribution Width 13.5 % (11.8-14.3); White Blood Cell 13.4 10^3/uL (4.4-10.8)
[2021-09-02 03:52] LABS: Potassium 3.9 mmol/L (3.5-5.1)
[2021-09-02 03:58] LABS: Albumin 1.3 g/dL (3.4-5.0); BUN/Creatinine Ratio 72.6; Bilirubin, Total 0.8 mg/dL (0.2-1.0); Calcium 8.5 mg/dL (8.5-10.1); Total Protein 4.9 g/dL (6.4-8.2)
[2021-09-02] MEDS: VANCOMYCIN 1GM/250ML 250 ML IV SCH ×2 (06:20→21:00)
[2021-09-02] MEDS: DOPamine 1600MCG/ML D5W 250 ML IV SCH ×2 (08:20→21:37)
[2021-09-02] MEDS: cefTRIAXone 1GM/50ML D5W 50 ML IV SCH ×2 (09:44→17:30)
[2021-09-02] MEDS: DOCUSATE ORAL LIQUID 100 MG/10 ML UD GT SCH ×2 (09:44→22:00)
[2021-09-02] MEDS: DexAMETHasone SOD PHOS 10MG/1ML VIAL INJ IV SCH (09:44)
[2021-09-02] MEDS: SODIUM ZIRCONIUM CYCL 10 GM PAK GT SCH (09:44)
[2021-09-02] MEDS: ASCORBIC ACID 1,000 MG TAB PO SCH (09:45)
[2021-09-02] MEDS: CHOLECALCIFEROL (VITD3) 2,000 UNIT CAP/TAB PO SCH (09:45)
[2021-09-02] MEDS: FUROSEMIDE 40 MG/4 ML VIAL IV SCH (09:45)
[2021-09-02] MEDS: ZINC SULFATE 220mg CAP or TAB PO SCH (09:45)
[2021-09-02] MEDS: PANTOPRAZOLE 40 MG/10 ML VIAL INJ IV SCH (09:45)
[2021-09-02] MEDS: LACTULOSE 20Gm/30ML SOLN PO SCH (09:45)
[2021-09-02] MEDS: INSULIN LANTUS (GLARGINE) 1 /0.01ml (100units/ml) SC SCH ×2 (09:46→21:53)
[2021-09-02] MEDS: ENOXAPARIN SOD 30 MG/0.3 ML SYRINGE SC SCH (09:46)
[2021-09-02] MEDS: NOREPINEPHRINE 8 MG/250ML KIT 250 ML IV SCH (17:18)
[2021-09-03] VITALS (101 sets, daily range): BP systolic 103–136; BP diastolic 41–53
[2021-09-03] MEDS: FREE WATER GT SCH ×6 (02:00→22:00)
[2021-09-03] MEDS: ACCU-CHEK COMFORT CURVE STRIP VI SCH ×6 (04:00→20:00)
[2021-09-03] MEDS: InsuLIN REG 1unit/0.01ml Soln (100units/ml) SC SCH ×6 (04:00→20:00)
[2021-09-03 05:54] LABS: Basophils # (auto) 0.1 10 ^3/uL (0-0.2); Basophils % (auto) 1.1 % (0.0-2.0); Eosinophils # (auto) 0 10 ^3/uL (0-0.8); Hematocrit 32.6 % (41.0-53.0); Lymphocytes # (auto) 0.3 10 ^3/uL (0.4-5.4); Lymphocytes % (auto) 2.2 % (10.0-50.0); Mean Corpuscular Hemoglobin 29.7 pg (28.0-32.0); Mean Corpuscular Hgb Conc. 33.8 g/dL (32.0-36.0); Mean Corpuscular Volume 87.9 fL (80.0-100.0); Monocytes # (auto) 0.5 10 ^3/uL (0-1.3); Neutrophils # (auto) 12.4 10 ^3/uL (1.6-8.6); Neutrophils % (auto) 92.7 % (37.0-80.0); Red Cell Distribution Width 13.4 % (11.8-14.3); White Blood Cell 13.4 10^3/uL (4.4-10.8)
[2021-09-03 06:11] LABS: Albumin 1.3 g/dL (3.4-5.0); BUN/Creatinine Ratio 75.7; Calcium 8.3 mg/dL (8.5-10.1); Potassium 4.7 mmol/L (3.5-5.1)
[2021-09-03 06:14] LABS: Bilirubin, Total 0.7 mg/dL (0.2-1.0); Total Protein 4.9 g/dL (6.4-8.2)
[2021-09-03] MEDS: VANCOMYCIN 1GM/250ML 250 ML IV SCH (07:00)
[2021-09-03] MEDS: NOREPINEPHRINE 8 MG/250ML KIT 250 ML IV SCH (07:30)
[2021-09-03] MEDS: DOCUSATE ORAL LIQUID 100 MG/10 ML UD GT SCH (08:48)
[2021-09-03] MEDS: PANTOPRAZOLE 40 MG/10 ML VIAL INJ IV SCH (08:49)
[2021-09-03] MEDS: FUROSEMIDE 40 MG/4 ML VIAL IV SCH (08:49)
[2021-09-03] MEDS: DexAMETHasone SOD PHOS 10MG/1ML VIAL INJ IV SCH (08:49)
[2021-09-03] MEDS: ASCORBIC ACID 1,000 MG TAB PO SCH (08:50)
[2021-09-03] MEDS: LACTULOSE 20Gm/30ML SOLN PO SCH (08:50)
[2021-09-03] MEDS: CHOLECALCIFEROL (VITD3) 2,000 UNIT CAP/TAB PO SCH (08:50)
[2021-09-03] MEDS: ZINC SULFATE 220mg CAP or TAB PO SCH (08:50)
[2021-09-03] MEDS: ENOXAPARIN SOD 30 MG/0.3 ML SYRINGE SC SCH (08:50)
[2021-09-03] MEDS: SODIUM ZIRCONIUM CYCL 10 GM PAK GT SCH (09:33)
[2021-09-03] MEDS: INSULIN LANTUS (GLARGINE) 1 /0.01ml (100units/ml) SC SCH ×2 (09:36→22:00)
[2021-09-03] MEDS: DOPamine 1600MCG/ML D5W 250 ML IV SCH ×2 (10:45→23:34)
[2021-09-03] MEDS: PROPOFOL 100 ML IV SCH (10:46)
[2021-09-04] VITALS (99 sets, daily range): BP systolic 93–121; BP diastolic 42–54
[2021-09-04] MEDS: DOCUSATE ORAL LIQUID 100 MG/10 ML UD GT SCH ×3 (01:11→22:00)
[2021-09-04] MEDS: ACCU-CHEK COMFORT CURVE STRIP VI SCH ×6 (01:11→20:00)
[2021-09-04] MEDS: FREE WATER GT SCH ×6 (02:00→22:00)
[2021-09-04] MEDS: MIDAZOLAM DRIP 50 mg/50mL 50 ML IV SCH ×2 (03:00→06:45)
[2021-09-04] MEDS: PROPOFOL 100 ML IV SCH ×2 (03:00→07:19)
[2021-09-04] MEDS: InsuLIN REG 1unit/0.01ml Soln (100units/ml) SC SCH ×6 (04:00→20:00)
[2021-09-04 06:40] LABS: Eosinophils # (auto) 0 10 ^3/uL (0-0.8); Hemoglobin 10.7 g/dL (13.5-17.5); Mean Corpuscular Volume 87.9 fL (80.0-100.0)
[2021-09-04 06:43] LABS: Basophils # (auto) 0 10 ^3/uL (0-0.2); Basophils % (auto) 0.3 % (0.0-2.0); Eosinophils % (auto) 0.2 % (0.0-7.0); Hematocrit 31.7 % (41.0-53.0); Lymphocytes # (auto) 0.3 10 ^3/uL (0.4-5.4); Lymphocytes % (auto) 3.4 % (10.0-50.0); Mean Corpuscular Hemoglobin 29.8 pg (28.0-32.0); Mean Corpuscular Hgb Conc. 33.9 g/dL (32.0-36.0); Monocytes # (auto) 0.5 10 ^3/uL (0-1.3); Monocytes % (auto) 4.7 % (0.0-12.0); Neutrophils # (auto) 9.1 10 ^3/uL (1.6-8.6); Neutrophils % (auto) 91.4 % (37.0-80.0); Nucleated Red Blood Cells % 0.1 %; Red Blood Cells 3.61 10^6/uL (4.5-5.90); Red Cell Distribution Width 13.5 % (11.8-14.3)
[2021-09-04 06:57] LABS: Albumin 1.4 g/dL (3.4-5.0); Calcium 7.8 mg/dL (8.5-10.1); Potassium 4.3 mmol/L (3.5-5.1)
[2021-09-04 07:00] LABS: BUN/Creatinine Ratio 90.6; Bilirubin, Total 0.8 mg/dL (0.2-1.0)
[2021-09-04] MEDS: NOREPINEPHRINE 8 MG/250ML KIT 250 ML IV SCH (07:30)
[2021-09-04] MEDS: DexAMETHasone SOD PHOS 10MG/1ML VIAL INJ IV SCH (09:23)
[2021-09-04] MEDS: SODIUM ZIRCONIUM CYCL 10 GM PAK GT SCH (09:23)
[2021-09-04] MEDS: cefTRIAXone 1GM/50ML D5W 50 ML IV SCH (09:23)
[2021-09-04] MEDS: ASCORBIC ACID 1,000 MG TAB PO SCH (09:24)
[2021-09-04] MEDS: LACTULOSE 20Gm/30ML SOLN PO SCH (09:24)
[2021-09-04] MEDS: FUROSEMIDE 40 MG/4 ML VIAL IV SCH (09:24)
[2021-09-04] MEDS: ZINC SULFATE 220mg CAP or TAB PO SCH (09:24)
[2021-09-04] MEDS: PANTOPRAZOLE 40 MG/10 ML VIAL INJ IV SCH (09:24)
[2021-09-04] MEDS: CHOLECALCIFEROL (VITD3) 2,000 UNIT CAP/TAB PO SCH (09:25)
[2021-09-04] MEDS: INSULIN LANTUS (GLARGINE) 1 /0.01ml (100units/ml) SC SCH ×2 (09:25→22:00)
[2021-09-04] MEDS: ENOXAPARIN SOD 30 MG/0.3 ML SYRINGE SC SCH (09:26)
[2021-09-04] MEDS: DOPamine 1600MCG/ML D5W 250 ML IV SCH (13:28)
[2021-09-04] MEDS: VANCOMYCIN 1GM/250ML 250 ML IV SCH (17:00)
[2021-09-04] MEDS: PIPERACILLIN-TAZOB 3.375GM 100 ML IV SCH (18:00)
[2021-09-05] VITALS (95 sets, daily range): BP systolic 77–200; BP diastolic 38–91
[2021-09-05] MEDS: ACCU-CHEK COMFORT CURVE STRIP VI SCH ×6 (01:31→20:00)
[2021-09-05] MEDS: DOPamine 1600MCG/ML D5W 250 ML IV SCH ×2 (01:32→07:45)
[2021-09-05] MEDS: PIPERACILLIN-TAZOB 3.375GM 100 ML IV SCH ×4 (01:32→17:07)
[2021-09-05] MEDS: FREE WATER GT SCH ×7 (01:32→21:22)
[2021-09-05] MEDS: InsuLIN REG 1unit/0.01ml Soln (100units/ml) SC SCH ×6 (04:00→20:00)
[2021-09-05] MEDS ORDERED: fentaNYL Drip 2500mCg/250mlNS 250 ML IV ONE (05:26)
[2021-09-05] MEDS ORDERED: LORazepam 2MG/ML-1ML VIAL IV PRN (05:30)
[2021-09-05] MEDS ORDERED: LORazepam 2MG/ML-1ML VIAL ONE (05:34)
[2021-09-05] MEDS: fentaNYL Drip 2500mCg/250mlNS 250 ML IV SCH (06:30)
[2021-09-05 06:34] LABS: Basophils # (auto) 0.1 10 ^3/uL (0-0.2); Hemoglobin 12.8 g/dL (13.5-17.5); Neutrophils # (auto) 6.6 10 ^3/uL (1.6-8.6); White Blood Cell 7.5 10^3/uL (4.4-10.8)
[2021-09-05 06:36] LABS: Basophils % (auto) 0.7 % (0.0-2.0); Eosinophils # (auto) 0.2 10 ^3/uL (0-0.8); Eosinophils % (auto) 2.1 % (0.0-7.0); Hematocrit 38.3 % (41.0-53.0); Lymphocytes # (auto) 0.6 10 ^3/uL (0.4-5.4); Lymphocytes % (auto) 8.4 % (10.0-50.0); Mean Corpuscular Hemoglobin 29.6 pg (28.0-32.0); Mean Corpuscular Hgb Conc. 33.4 g/dL (32.0-36.0); Mean Corpuscular Volume 88.7 fL (80.0-100.0); Monocytes # (auto) 0 10 ^3/uL (0-1.3); Monocytes % (auto) 0.6 % (0.0-12.0); Neutrophils % (auto) 88.2 % (37.0-80.0); Nucleated Red Blood Cells % 0.2 %; Red Blood Cells 4.32 10^6/uL (4.5-5.90); Red Cell Distribution Width 13.4 % (11.8-14.3)
[2021-09-05 06:46] LABS: Potassium 3.6 mmol/L (3.5-5.1)
[2021-09-05 06:57] LABS: Albumin 1.5 g/dL (3.4-5.0); BUN/Creatinine Ratio 82.3; Bilirubin, Total 1.8 mg/dL (0.2-1.0); Calcium 7.6 mg/dL (8.5-10.1); Magnesium 3.6 mg/dL (1.6-2.6); Total Protein 5.6 g/dL (6.4-8.2)
[2021-09-05] MEDS: NOREPINEPHRINE 8 MG/250ML KIT 250 ML IV SCH ×2 (07:52→11:21)
[2021-09-05] MEDS: ASCORBIC ACID 1,000 MG TAB PO SCH (07:58)
[2021-09-05] MEDS: ZINC SULFATE 220mg CAP or TAB PO SCH (07:58)
[2021-09-05] MEDS: CHOLECALCIFEROL (VITD3) 2,000 UNIT CAP/TAB PO SCH (07:58)
[2021-09-05] MEDS: DOCUSATE ORAL LIQUID 100 MG/10 ML UD GT SCH ×2 (07:58→21:22)
[2021-09-05] MEDS: SODIUM ZIRCONIUM CYCL 10 GM PAK GT SCH (07:58)
[2021-09-05] MEDS: LACTULOSE 20Gm/30ML SOLN PO SCH (07:58)
[2021-09-05] MEDS: PHENYLEPHRINE IV 250 ML IV SCH ×2 (08:00→16:46)
[2021-09-05] MEDS: EPINEPHrine HCL 250 ML IV SCH (08:00)
[2021-09-05] MEDS: VASOPRESSIN 50 UNITS in D5W 5% 247.5 ML IV SCH ×2 (08:00→21:00)
[2021-09-05] MEDS: INSULIN LANTUS (GLARGINE) 1 /0.01ml (100units/ml) SC SCH ×2 (08:20→21:22)
[2021-09-05] MEDS: ENOXAPARIN SOD 30 MG/0.3 ML SYRINGE SC SCH (08:20)
[2021-09-05] MEDS: FUROSEMIDE 40 MG/4 ML VIAL IV SCH (09:14)
[2021-09-05] MEDS: DexAMETHasone SOD PHOS 10MG/1ML VIAL INJ IV SCH (09:14)
[2021-09-05] MEDS: PROPOFOL 100 ML IV SCH ×2 (09:14→12:22)
[2021-09-05] MEDS: PANTOPRAZOLE 40 MG/10 ML VIAL INJ IV SCH (09:18)
[2021-09-05] MEDS ORDERED: ROCURONIUM 10MG/ML 10ML VIAL IV ONE ×2 (10:49→11:00)
[2021-09-05] MEDS: ROCURONIUM BROMIDE 1,000 MG in D5W 5% 150 ML IV SCH (11:00)
[2021-09-05] MEDS: MIDAZOLAM DRIP 50 mg/50mL 50 ML IV SCH (11:21)
[2021-09-05] MEDS: PHENYLEPHRINE INJ 80 MG in SODIUM CHL 0.9% 242 ML IV SCH (21:21)
[2021-09-06] VITALS (90 sets, daily range): BP systolic 80–183; BP diastolic 38–85
[2021-09-06] MEDS: ACCU-CHEK COMFORT CURVE STRIP VI SCH ×6 (04:00→20:02)
[2021-09-06 04:48] LABS: Basophils # (auto) 0.1 10 ^3/uL (0-0.2); Basophils % (auto) 0.3 % (0.0-2.0); Eosinophils # (auto) 0 10 ^3/uL (0-0.8); Eosinophils % (auto) 0.1 % (0.0-7.0); Hematocrit 37.6 % (41.0-53.0); Hemoglobin 12.7 g/dL (13.5-17.5); Lymphocytes # (auto) 1.3 10 ^3/uL (0.4-5.4); Lymphocytes % (auto) 6.4 % (10.0-50.0); Mean Corpuscular Hgb Conc. 33.8 g/dL (32.0-36.0); Mean Corpuscular Volume 88.8 fL (80.0-100.0); Monocytes # (auto) 1.5 10 ^3/uL (0-1.3); Monocytes % (auto) 7.5 % (0.0-12.0); Neutrophils # (auto) 17.2 10 ^3/uL (1.6-8.6); Neutrophils % (auto) 85.7 % (37.0-80.0); Nucleated Red Blood Cells % 0.4 %; Red Blood Cells 4.23 10^6/uL (4.5-5.90); Red Cell Distribution Width 13.6 % (11.8-14.3); White Blood Cell 20.1 10^3/uL (4.4-10.8)
[2021-09-06] MEDS: VANCOMYCIN 1GM/250ML 250 ML IV SCH (05:00)
[2021-09-06] MEDS ORDERED: PHENYLEPHRINE IV 250 ML IV ONE (05:06)
[2021-09-06] MEDS ORDERED: PHENYLEPHRINE HCL 10 MG/ML VL ONE (05:07)
[2021-09-06 05:11] LABS: Albumin 1.3 g/dL (3.4-5.0); BUN/Creatinine Ratio 44.6; Calcium 6.7 mg/dL (8.5-10.1); Potassium 5.4 mmol/L (3.5-5.1)
[2021-09-06 05:14] LABS: Bilirubin, Total 2.3 mg/dL (0.2-1.0)
[2021-09-06] MEDS: PIPERACILLIN-TAZOB 3.375GM 100 ML IV SCH ×2 (05:15)
[2021-09-06] MEDS: InsuLIN REG 1unit/0.01ml Soln (100units/ml) SC SCH ×7 (05:16→23:30)
[2021-09-06] MEDS: PHENYLEPHRINE INJ 80 MG in SODIUM CHL 0.9% 242 ML IV SCH ×2 (05:16→21:49)
[2021-09-06] MEDS: DOPamine 1600MCG/ML D5W 250 ML IV SCH ×2 (05:19→16:10)
[2021-09-06] MEDS: fentaNYL Drip 2500mCg/250mlNS 250 ML IV SCH (05:20)
[2021-09-06] MEDS: FREE WATER GT SCH ×2 (06:00→10:06)
[2021-09-06] MEDS: EPINEPHrine HCL 250 ML IV SCH (06:51)
[2021-09-06] MEDS: ROCURONIUM BROMIDE 1,000 MG in D5W 5% 150 ML IV SCH (06:51)
[2021-09-06] MEDS: MIDAZOLAM DRIP 50 mg/50mL 50 ML IV SCH ×2 (07:49→20:16)
[2021-09-06] MEDS: LACTULOSE 20Gm/30ML SOLN PO SCH (10:00)
[2021-09-06] MEDS: DOCUSATE ORAL LIQUID 100 MG/10 ML UD GT SCH ×2 (10:06→20:02)
[2021-09-06] MEDS: FUROSEMIDE 40 MG/4 ML VIAL IV SCH (10:06)
[2021-09-06] MEDS: SODIUM ZIRCONIUM CYCL 10 GM PAK GT SCH (10:06)
[2021-09-06] MEDS: DexAMETHasone SOD PHOS 10MG/1ML VIAL INJ IV SCH (10:06)
[2021-09-06] MEDS: ZINC SULFATE 220mg CAP or TAB PO SCH (10:07)
[2021-09-06] MEDS: PANTOPRAZOLE 40 MG/10 ML VIAL INJ IV SCH (10:07)
[2021-09-06] MEDS: ASCORBIC ACID 1,000 MG TAB PO SCH (10:07)
[2021-09-06] MEDS: CHOLECALCIFEROL (VITD3) 2,000 UNIT CAP/TAB PO SCH (10:08)
[2021-09-06] MEDS: ENOXAPARIN SOD 30 MG/0.3 ML SYRINGE SC SCH (10:08)
[2021-09-06] MEDS: INSULIN LANTUS (GLARGINE) 1 /0.01ml (100units/ml) SC SCH ×2 (10:13→20:05)
[2021-09-06] MEDS: PROPOFOL 100 ML IV SCH (11:35)
[2021-09-06] MEDS: CEFEPIME 2 GM in SODIUM CHL 0.9% 50 ML IV SCH ×2 (12:00→23:30)
[2021-09-07] VITALS (87 sets, daily range): BP systolic 64–143; BP diastolic 34–75
[2021-09-07] MEDS: ACCU-CHEK COMFORT CURVE STRIP VI SCH ×6 (00:21→20:55)
[2021-09-07] MEDS: MIDAZOLAM DRIP 50 mg/50mL 50 ML IV SCH ×3 (01:35→13:47)
[2021-09-07] MEDS: PROPOFOL 100 ML IV SCH (01:35)
[2021-09-07] MEDS: InsuLIN REG 1unit/0.01ml Soln (100units/ml) SC SCH ×5 (04:00→20:56)
[2021-09-07] MEDS: fentaNYL Drip 2500mCg/250mlNS 250 ML IV SCH ×2 (05:13→18:33)
[2021-09-07] MEDS: DOCUSATE ORAL LIQUID 100 MG/10 ML UD GT SCH ×2 (09:07→22:00)
[2021-09-07] MEDS: PANTOPRAZOLE 40 MG/10 ML VIAL INJ IV SCH (09:08)
[2021-09-07] MEDS: SODIUM ZIRCONIUM CYCL 10 GM PAK GT SCH (09:08)
[2021-09-07] MEDS: DexAMETHasone SOD PHOS 10MG/1ML VIAL INJ IV SCH (09:08)
[2021-09-07] MEDS: ZINC SULFATE 220mg CAP or TAB PO SCH (09:09)
[2021-09-07] MEDS: ASCORBIC ACID 1,000 MG TAB PO SCH (09:09)
[2021-09-07] MEDS: CHOLECALCIFEROL (VITD3) 2,000 UNIT CAP/TAB PO SCH (09:09)
[2021-09-07] MEDS: ENOXAPARIN SOD 30 MG/0.3 ML SYRINGE SC SCH (09:56)
[2021-09-07] MEDS: INSULIN LANTUS (GLARGINE) 1 /0.01ml (100units/ml) SC SCH ×2 (10:00→22:00)
[2021-09-07] MEDS: FUROSEMIDE 40 MG/4 ML VIAL IV SCH (10:06)
[2021-09-07] MEDS: LACTULOSE 20Gm/30ML SOLN PO SCH (10:06)
[2021-09-07] MEDS: CEFEPIME 2 GM in SODIUM CHL 0.9% 50 ML IV SCH (11:40)
[2021-09-07] MEDS: NOREPINEPHRINE 8 MG/250ML KIT 250 ML IV SCH (14:30)
[2021-09-07 14:36] LABS: Hematocrit 30.5 % (41.0-53.0); Hemoglobin 10.5 g/dL (13.5-17.5); Mean Corpuscular Hemoglobin 29.5 pg (28.0-32.0); Mean Corpuscular Hgb Conc. 34.5 g/dL (32.0-36.0); Mean Corpuscular Volume 85.6 fL (80.0-100.0); Red Blood Cells 3.56 10^6/uL (4.5-5.90); Red Cell Distribution Width 13.7 % (11.8-14.3); White Blood Cell 18.9 10^3/uL (4.4-10.8)
[2021-09-07 14:39] LABS: Basophils % (manual) 0 (0.0-2.0); Blast Cells 0; Eosinophils % (manual) 0 (0-7); Metamyelocytes % 0; Monocytes % (manual) 0 (0-12); Myelocytes % 0; Promyelocytes % 0; Reactive Lymphocytes 0
[2021-09-07 14:43] LABS: Albumin 1.2 g/dL (3.4-5.0); Calcium 6.2 mg/dL (8.5-10.1); Magnesium 3.1 mg/dL (1.6-2.6); Potassium 3.8 mmol/L (3.5-5.1)
[2021-09-07 14:54] LABS: BUN/Creatinine Ratio 39.3; Bilirubin, Total 3.1 mg/dL (0.2-1.0); Total Protein 4.9 g/dL (6.4-8.2)
[2021-09-07 15:00] LABS: Band Neutrophils % (manual) 5; Lymphocytes % (manual) 3 (10.0-50.0)
[2021-09-07] MEDS: VANCOMYCIN 1GM/250ML 250 ML IV SCH (16:22)
[2021-09-07] MEDS: BUMETANIDE INJECTION 25 MG in GIVE UN-DILUTED 0 ML IV SCH (18:00)
[2021-09-07] MEDS: ROCURONIUM BROMIDE 1,000 MG in D5W 5% 150 ML IV SCH ×2 (20:53→23:36)
[2021-09-07] MEDS: DOPamine 1600MCG/ML D5W 250 ML IV SCH ×2 (20:54→21:10)
[2021-09-07] MEDS: VASOPRESSIN 50 UNITS in D5W 5% 247.5 ML IV SCH (20:54)
[2021-09-07] MEDS: EPINEPHrine HCL 250 ML IV SCH (20:54)
[2021-09-08] VITALS (97 sets, daily range): BP systolic 77–148; BP diastolic 46–71
[2021-09-08] MEDS: ACCU-CHEK COMFORT CURVE STRIP VI SCH ×6 (00:06→21:05)
[2021-09-08] MEDS: InsuLIN REG 1unit/0.01ml Soln (100units/ml) SC SCH ×6 (00:07→21:04)
[2021-09-08] MEDS: PROPOFOL 100 ML IV SCH (05:27)
[2021-09-08] MEDS: BUMETANIDE INJECTION 25 MG in GIVE UN-DILUTED 0 ML IV SCH ×2 (05:27→12:48)
[2021-09-08] MEDS: fentaNYL Drip 2500mCg/250mlNS 250 ML IV SCH ×2 (05:28→18:34)
[2021-09-08] MEDS: EPINEPHrine HCL 250 ML IV SCH (08:00)
[2021-09-08] MEDS: VASOPRESSIN 50 UNITS in D5W 5% 247.5 ML IV SCH (08:00)
[2021-09-08] MEDS: MIDAZOLAM DRIP 50 mg/50mL 50 ML IV SCH ×2 (08:45→15:20)
[2021-09-08] MEDS: PANTOPRAZOLE 40 MG/10 ML VIAL INJ IV SCH (08:48)
[2021-09-08] MEDS: LACTULOSE 20Gm/30ML SOLN PO SCH (08:48)
[2021-09-08] MEDS: ZINC SULFATE 220mg CAP or TAB PO SCH (08:48)
[2021-09-08] MEDS: ASCORBIC ACID 1,000 MG TAB PO SCH (08:48)
[2021-09-08] MEDS: DOCUSATE ORAL LIQUID 100 MG/10 ML UD GT SCH ×2 (08:49→22:00)
[2021-09-08] MEDS: SODIUM ZIRCONIUM CYCL 10 GM PAK GT SCH (08:49)
[2021-09-08] MEDS: ENOXAPARIN SOD 30 MG/0.3 ML SYRINGE SC SCH (08:49)
[2021-09-08] MEDS: INSULIN LANTUS (GLARGINE) 1 /0.01ml (100units/ml) SC SCH ×2 (08:50→22:00)
[2021-09-08] MEDS: CHOLECALCIFEROL (VITD3) 2,000 UNIT CAP/TAB PO SCH (08:50)
[2021-09-08] MEDS: DexAMETHasone SOD PHOS 10MG/1ML VIAL INJ IV SCH (08:50)
[2021-09-08] MEDS: DOPamine 1600MCG/ML D5W 250 ML IV SCH ×2 (10:27→23:44)
[2021-09-08] MEDS ORDERED: SODIUM CHL 0.9% 1000 ML BAG XX ONE (11:00)
[2021-09-08] MEDS: CEFEPIME 2 GM in SODIUM CHL 0.9% 50 ML IV SCH ×4 (12:00→23:47)
[2021-09-08 19:03] LABS: Basophils # (auto) 0 10 ^3/uL (0-0.2); Basophils % (auto) 0.2 % (0.0-2.0); Eosinophils # (auto) 0 10 ^3/uL (0-0.8); Hematocrit 33.2 % (41.0-53.0); Hemoglobin 11.3 g/dL (13.5-17.5); Lymphocytes # (auto) 0.5 10 ^3/uL (0.4-5.4); Lymphocytes % (auto) 2.5 % (10.0-50.0); Mean Corpuscular Hemoglobin 29.4 pg (28.0-32.0); Mean Corpuscular Hgb Conc. 33.9 g/dL (32.0-36.0); Mean Corpuscular Volume 86.8 fL (80.0-100.0); Monocytes # (auto) 0.4 10 ^3/uL (0-1.3); Monocytes % (auto) 2.1 % (0.0-12.0); Neutrophils # (auto) 18.1 10 ^3/uL (1.6-8.6); Neutrophils % (auto) 95.2 % (37.0-80.0); Red Blood Cells 3.83 10^6/uL (4.5-5.90); Red Cell Distribution Width 14.1 % (11.8-14.3)
[2021-09-08 19:19] LABS: Albumin 1.3 g/dL (3.4-5.0); BUN/Creatinine Ratio 35.9; Calcium 6.7 mg/dL (8.5-10.1); Potassium 3.8 mmol/L (3.5-5.1)
[2021-09-08 19:21] LABS: Bilirubin, Total 2.7 mg/dL (0.2-1.0); Total Protein 5.6 g/dL (6.4-8.2)
[2021-09-08] MEDS: PHENYLEPHRINE INJ 80 MG in SODIUM CHL 0.9% 242 ML IV SCH (19:30)
[2021-09-08] MEDS: ROCURONIUM BROMIDE 1,000 MG in D5W 5% 150 ML IV SCH (19:48)
[2021-09-09] VITALS (90 sets, daily range): BP systolic 64–202; BP diastolic 34–87
[2021-09-09] MEDS: ACCU-CHEK COMFORT CURVE STRIP VI SCH ×6 (01:23→21:04)
[2021-09-09] MEDS: InsuLIN REG 1unit/0.01ml Soln (100units/ml) SC SCH ×6 (01:23→20:43)
[2021-09-09 05:26] LABS: Basophils # (auto) 0.1 10 ^3/uL (0-0.2); Basophils % (auto) 0.7 % (0.0-2.0); Eosinophils # (auto) 0.2 10 ^3/uL (0-0.8); Eosinophils % (auto) 1.2 % (0.0-7.0); Hematocrit 32.3 % (41.0-53.0); Lymphocytes % (auto) 7.3 % (10.0-50.0); Mean Corpuscular Hemoglobin 29.7 pg (28.0-32.0); Mean Corpuscular Volume 87.4 fL (80.0-100.0); Monocytes # (auto) 0.5 10 ^3/uL (0-1.3); Monocytes % (auto) 3.8 % (0.0-12.0); Neutrophils # (auto) 12.4 10 ^3/uL (1.6-8.6); Nucleated Red Blood Cells % 0.2 %; Red Cell Distribution Width 14.4 % (11.8-14.3); White Blood Cell 14.3 10^3/uL (4.4-10.8)
[2021-09-09] MEDS: VANCOMYCIN 1GM/250ML 250 ML IV SCH (06:06)
[2021-09-09 06:08] LABS: Albumin 1.2 g/dL (3.4-5.0); BUN/Creatinine Ratio 31.3; Calcium 6.5 mg/dL (8.5-10.1); Potassium 3.3 mmol/L (3.5-5.1)
[2021-09-09 06:11] LABS: Bilirubin, Total 2.7 mg/dL (0.2-1.0); Total Protein 4.9 g/dL (6.4-8.2)
[2021-09-09] MEDS: EPINEPHrine HCL 250 ML IV SCH (08:00)
[2021-09-09] MEDS: VASOPRESSIN 50 UNITS in D5W 5% 247.5 ML IV SCH (08:00)
[2021-09-09] MEDS: SODIUM ZIRCONIUM CYCL 10 GM PAK GT SCH (08:39)
[2021-09-09] MEDS: INSULIN LANTUS (GLARGINE) 1 /0.01ml (100units/ml) SC SCH ×2 (08:40→22:00)
[2021-09-09] MEDS: ENOXAPARIN SOD 30 MG/0.3 ML SYRINGE SC SCH (08:41)
[2021-09-09] MEDS ORDERED: POTASSIUM CHL 20MEQ/50ML 50 ML IV ONE (09:15)
[2021-09-09] MEDS: PANTOPRAZOLE 40 MG/10 ML VIAL INJ IV SCH (09:21)
[2021-09-09] MEDS: DOCUSATE ORAL LIQUID 100 MG/10 ML UD GT SCH ×2 (09:21→23:44)
[2021-09-09] MEDS: DexAMETHasone SOD PHOS 10MG/1ML VIAL INJ IV SCH (09:21)
[2021-09-09] MEDS: ASCORBIC ACID 1,000 MG TAB PO SCH (09:22)
[2021-09-09] MEDS: CHOLECALCIFEROL (VITD3) 2,000 UNIT CAP/TAB PO SCH (09:22)
[2021-09-09] MEDS: MIDAZOLAM DRIP 50 mg/50mL 50 ML IV SCH (09:23)
[2021-09-09] MEDS: ZINC SULFATE 220mg CAP or TAB PO SCH (10:00)
[2021-09-09] MEDS: CEFEPIME 2 GM in SODIUM CHL 0.9% 50 ML IV SCH (12:30)
[2021-09-09] MEDS: PROPOFOL 100 ML IV SCH (12:48)
[2021-09-09] MEDS: DOPamine 1600MCG/ML D5W 250 ML IV SCH (13:01)
[2021-09-09 14:26] LABS: INR 1.03 (0.9-1.15); Partial Thromboplastin Time 24.7 sec (23.6-33.0)
[2021-09-09] MEDS: ROCURONIUM BROMIDE 1,000 MG in D5W 5% 150 ML IV SCH (16:00)
[2021-09-09] MEDS: fentaNYL Drip 2500mCg/250mlNS 250 ML IV SCH (17:47)
[2021-09-09] MEDS: PHENYLEPHRINE INJ 80 MG in SODIUM CHL 0.9% 242 ML IV SCH (19:30)
[2021-09-10] VITALS (103 sets, daily range): BP systolic 79–174; BP diastolic 41–72
[2021-09-10] MEDS: CEFEPIME 2 GM in SODIUM CHL 0.9% 50 ML IV SCH ×2 (00:17→12:20)
[2021-09-10] MEDS: ACCU-CHEK COMFORT CURVE STRIP VI SCH ×6 (00:17→20:00)
[2021-09-10] MEDS: DOPamine 1600MCG/ML D5W 250 ML IV SCH ×2 (02:18→15:35)
[2021-09-10] MEDS: InsuLIN REG 1unit/0.01ml Soln (100units/ml) SC SCH ×6 (04:00→20:00)
[2021-09-10 05:51] LABS: Basophils # (auto) 0.1 10 ^3/uL (0-0.2); Basophils % (auto) 0.9 % (0.0-2.0); Eosinophils # (auto) 0.3 10 ^3/uL (0-0.8); Hemoglobin 11.2 g/dL (13.5-17.5); Lymphocytes # (auto) 0.9 10 ^3/uL (0.4-5.4); Monocytes # (auto) 0.6 10 ^3/uL (0-1.3); Nucleated Red Blood Cells % 0.1 %
[2021-09-10 05:53] LABS: Eosinophils % (auto) 2.1 % (0.0-7.0); Hematocrit 33.3 % (41.0-53.0); Lymphocytes % (auto) 5.6 % (10.0-50.0); Mean Corpuscular Hemoglobin 29.4 pg (28.0-32.0); Mean Corpuscular Hgb Conc. 33.8 g/dL (32.0-36.0); Mean Corpuscular Volume 87.2 fL (80.0-100.0); Neutrophils # (auto) 13.3 10 ^3/uL (1.6-8.6); Neutrophils % (auto) 87.4 % (37.0-80.0); Red Blood Cells 3.82 10^6/uL (4.5-5.90); Red Cell Distribution Width 13.9 % (11.8-14.3); White Blood Cell 15.3 10^3/uL (4.4-10.8)
[2021-09-10 06:21] LABS: Potassium 3.1 mmol/L (3.5-5.1)
[2021-09-10 06:26] LABS: Albumin 1.3 g/dL (3.4-5.0); BUN/Creatinine Ratio 30.9; Calcium 6.9 mg/dL (8.5-10.1)
[2021-09-10 06:29] LABS: Bilirubin, Total 2.8 mg/dL (0.2-1.0)
[2021-09-10] MEDS ORDERED: SODIUM CHL 0.9% 1000 ML BAG XX ONE (07:00)
[2021-09-10] MEDS: VASOPRESSIN 50 UNITS in D5W 5% 247.5 ML IV SCH (08:00)
[2021-09-10] MEDS: EPINEPHrine HCL 250 ML IV SCH (08:00)
[2021-09-10] MEDS: INSULIN LANTUS (GLARGINE) 1 /0.01ml (100units/ml) SC SCH ×2 (10:00→22:00)
[2021-09-10] MEDS: SODIUM ZIRCONIUM CYCL 10 GM PAK GT SCH (10:00)
[2021-09-10] MEDS: ZINC SULFATE 220mg CAP or TAB PO SCH (11:30)
[2021-09-10] MEDS: DexAMETHasone SOD PHOS 10MG/1ML VIAL INJ IV SCH (11:30)
[2021-09-10] MEDS: ASCORBIC ACID 1,000 MG TAB PO SCH (11:30)
[2021-09-10] MEDS: CHOLECALCIFEROL (VITD3) 2,000 UNIT CAP/TAB PO SCH (11:30)
[2021-09-10] MEDS: PANTOPRAZOLE 40 MG/10 ML VIAL INJ IV SCH (11:30)
[2021-09-10] MEDS: DOCUSATE ORAL LIQUID 100 MG/10 ML UD GT SCH ×2 (11:30→22:00)
[2021-09-10] MEDS: PROPOFOL 100 ML IV SCH ×2 (12:05→20:34)
[2021-09-10] MEDS: ROCURONIUM BROMIDE 1,000 MG in D5W 5% 150 ML IV SCH (12:12)
[2021-09-10] MEDS: MIDAZOLAM DRIP 50 mg/50mL 50 ML IV SCH ×2 (12:30→22:29)
[2021-09-10] MEDS: NOREPINEPHRINE 8 MG/250ML KIT 250 ML IV SCH (12:30)
[2021-09-10] MEDS: VANCOMYCIN 1GM/250ML 250 ML IV SCH (18:10)
[2021-09-10] MEDS: fentaNYL Drip 2500mCg/250mlNS 250 ML IV SCH (18:22)
[2021-09-10] MEDS: PHENYLEPHRINE INJ 80 MG in SODIUM CHL 0.9% 242 ML IV SCH (19:30)
[2021-09-11] VITALS (101 sets, daily range): BP systolic 86–135; BP diastolic 40–60
[2021-09-11] MEDS: InsuLIN REG 1unit/0.01ml Soln (100units/ml) SC SCH ×5 (03:41→17:42)
[2021-09-11] MEDS: ACCU-CHEK COMFORT CURVE STRIP VI SCH ×5 (03:41→17:41)
[2021-09-11] MEDS: DOPamine 1600MCG/ML D5W 250 ML IV SCH ×2 (04:52→18:09)
[2021-09-11] MEDS: fentaNYL Drip 2500mCg/250mlNS 250 ML IV SCH ×3 (05:42→18:00)
[2021-09-11 05:55] LABS: Basophils # (auto) 0.1 10 ^3/uL (0-0.2); Monocytes # (auto) 0.7 10 ^3/uL (0-1.3); Red Blood Cells 3.63 10^6/uL (4.5-5.90); Red Cell Distribution Width 14.4 % (11.8-14.3)
[2021-09-11 05:58] LABS: Basophils % (auto) 0.6 % (0.0-2.0); Eosinophils # (auto) 0.2 10 ^3/uL (0-0.8); Eosinophils % (auto) 1.3 % (0.0-7.0); Hemoglobin 10.7 g/dL (13.5-17.5); Lymphocytes # (auto) 0.9 10 ^3/uL (0.4-5.4); Lymphocytes % (auto) 5.5 % (10.0-50.0); Mean Corpuscular Hemoglobin 29.6 pg (28.0-32.0); Mean Corpuscular Hgb Conc. 33.5 g/dL (32.0-36.0); Mean Corpuscular Volume 88.1 fL (80.0-100.0); Neutrophils # (auto) 15.2 10 ^3/uL (1.6-8.6); Neutrophils % (auto) 88.6 % (37.0-80.0); White Blood Cell 17.2 10^3/uL (4.4-10.8)
[2021-09-11 06:03] LABS: Potassium 3.4 mmol/L (3.5-5.1)
[2021-09-11 06:14] LABS: Albumin 1.3 g/dL (3.4-5.0); Bilirubin, Total 2.6 mg/dL (0.2-1.0); Calcium 6.7 mg/dL (8.5-10.1)
[2021-09-11] MEDS: NOREPINEPHRINE 8 MG/250ML KIT 250 ML IV SCH ×2 (07:30→09:58)
[2021-09-11] MEDS: EPINEPHrine HCL 250 ML IV SCH (08:00)
[2021-09-11] MEDS: VASOPRESSIN 50 UNITS in D5W 5% 247.5 ML IV SCH (08:00)
[2021-09-11] MEDS: PROPOFOL 100 ML IV SCH (08:00)
[2021-09-11] MEDS: ROCURONIUM BROMIDE 1,000 MG in D5W 5% 150 ML IV SCH (08:24)
[2021-09-11] MEDS: PANTOPRAZOLE 40 MG/10 ML VIAL INJ IV SCH (09:34)
[2021-09-11] MEDS: DexAMETHasone SOD PHOS 10MG/1ML VIAL INJ IV SCH (09:34)
[2021-09-11] MEDS: DOCUSATE ORAL LIQUID 100 MG/10 ML UD GT SCH ×2 (09:34→21:56)
[2021-09-11] MEDS: ASCORBIC ACID 1,000 MG TAB PO SCH (09:35)
[2021-09-11] MEDS: ZINC SULFATE 220mg CAP or TAB PO SCH (09:35)
[2021-09-11] MEDS: CHOLECALCIFEROL (VITD3) 2,000 UNIT CAP/TAB PO SCH (09:35)
[2021-09-11] MEDS: MIDAZOLAM DRIP 50 mg/50mL 50 ML IV SCH (09:39)
[2021-09-11] MEDS: SODIUM ZIRCONIUM CYCL 10 GM PAK GT SCH (10:00)
[2021-09-11] MEDS: INSULIN LANTUS (GLARGINE) 1 /0.01ml (100units/ml) SC SCH ×2 (10:00→21:56)
[2021-09-11] MEDS: CEFEPIME 2 GM in SODIUM CHL 0.9% 50 ML IV SCH ×3 (12:06)
[2021-09-11] MEDS ORDERED: DEXTROSE (50%) 50ML SYRG IV PRN (13:45)
[2021-09-11] MEDS: PHENYLEPHRINE INJ 80 MG in SODIUM CHL 0.9% 242 ML IV SCH (19:30)
[2021-09-12] VITALS (107 sets, daily range): BP systolic 78–147; BP diastolic 40–67
[2021-09-12] MEDS: PROPOFOL 100 ML IV SCH ×2 (02:18→11:13)
[2021-09-12] MEDS: ROCURONIUM BROMIDE 1,000 MG in D5W 5% 150 ML IV SCH (04:36)
[2021-09-12] MEDS: VANCOMYCIN 1GM/250ML 250 ML IV SCH (05:00)
[2021-09-12] MEDS: InsuLIN REG 1unit/0.01ml Soln (100units/ml) SC SCH ×4 (06:00→18:00)
[2021-09-12] MEDS: ACCU-CHEK COMFORT CURVE STRIP VI SCH ×4 (06:00→18:00)
[2021-09-12 06:13] LABS: Hemoglobin 10.2 g/dL (13.5-17.5); Mean Corpuscular Volume 88.8 fL (80.0-100.0)
[2021-09-12 06:18] LABS: Basophils # (auto) 0.1 10 ^3/uL (0-0.2); Basophils % (auto) 0.5 % (0.0-2.0); Eosinophils # (auto) 0.3 10 ^3/uL (0-0.8); Eosinophils % (auto) 2.1 % (0.0-7.0); Hematocrit 30.4 % (41.0-53.0); Lymphocytes # (auto) 0.7 10 ^3/uL (0.4-5.4); Lymphocytes % (auto) 5.2 % (10.0-50.0); Mean Corpuscular Hemoglobin 29.9 pg (28.0-32.0); Mean Corpuscular Hgb Conc. 33.6 g/dL (32.0-36.0); Monocytes # (auto) 0.5 10 ^3/uL (0-1.3); Monocytes % (auto) 3.9 % (0.0-12.0); Neutrophils # (auto) 12.1 10 ^3/uL (1.6-8.6); Neutrophils % (auto) 88.3 % (37.0-80.0); Red Blood Cells 3.42 10^6/uL (4.5-5.90); Red Cell Distribution Width 14.7 % (11.8-14.3); White Blood Cell 13.7 10^3/uL (4.4-10.8)
[2021-09-12 06:32] LABS: Calcium 7.5 mg/dL (8.5-10.1); Magnesium 2.6 mg/dL (1.6-2.6)
[2021-09-12 06:34] LABS: BUN/Creatinine Ratio 23.5
[2021-09-12] MEDS ORDERED: SODIUM CHL 0.9% 1000 ML BAG XX ONE (07:00)
[2021-09-12] MEDS: DOPamine 1600MCG/ML D5W 250 ML IV SCH ×2 (07:26→20:43)
[2021-09-12] MEDS: VASOPRESSIN 50 UNITS in D5W 5% 247.5 ML IV SCH (08:00)
[2021-09-12] MEDS: EPINEPHrine HCL 250 ML IV SCH (08:00)
[2021-09-12] MEDS: fentaNYL Drip 2500mCg/250mlNS 250 ML IV SCH ×2 (08:30→21:00)
[2021-09-12] MEDS: ZINC SULFATE 220mg CAP or TAB PO SCH (09:38)
[2021-09-12] MEDS: CHOLECALCIFEROL (VITD3) 2,000 UNIT CAP/TAB PO SCH (09:38)
[2021-09-12] MEDS: DOCUSATE ORAL LIQUID 100 MG/10 ML UD GT SCH ×2 (09:38→21:31)
[2021-09-12] MEDS: ASCORBIC ACID 1,000 MG TAB PO SCH (09:38)
[2021-09-12] MEDS: DexAMETHasone SOD PHOS 10MG/1ML VIAL INJ IV SCH (09:39)
[2021-09-12] MEDS: PANTOPRAZOLE 40 MG/10 ML VIAL INJ IV SCH (09:39)
[2021-09-12] MEDS: CEFEPIME 2 GM in SODIUM CHL 0.9% 50 ML IV SCH ×3 (12:07)
[2021-09-12] MEDS ORDERED: THIAMINE 100mg/ml INJ (200mg/2ml VIAL) IV ONE (13:00)
[2021-09-12] MEDS: INSULIN LANTUS (GLARGINE) 1 /0.01ml (100units/ml) SC SCH (18:00)
[2021-09-12] MEDS: PHENYLEPHRINE INJ 80 MG in SODIUM CHL 0.9% 242 ML IV SCH (19:30)
[2021-09-13] VITALS (94 sets, daily range): BP systolic 67–144; BP diastolic 31–62
[2021-09-13] MEDS: ROCURONIUM BROMIDE 1,000 MG in D5W 5% 150 ML IV SCH ×2 (00:48→21:00)
[2021-09-13 05:16] LABS: Basophils # (auto) 0.1 10 ^3/uL (0-0.2); Basophils % (auto) 0.6 % (0.0-2.0); Hemoglobin 10.9 g/dL (13.5-17.5); Mean Corpuscular Volume 88.6 fL (80.0-100.0); Monocytes # (auto) 0.6 10 ^3/uL (0-1.3); Monocytes % (auto) 5.1 % (0.0-12.0); Nucleated Red Blood Cells % 0.1 %
[2021-09-13 05:17] LABS: Eosinophils # (auto) 0.4 10 ^3/uL (0-0.8); Eosinophils % (auto) 3.5 % (0.0-7.0); Hematocrit 31.9 % (41.0-53.0); Lymphocytes # (auto) 0.9 10 ^3/uL (0.4-5.4); Lymphocytes % (auto) 6.8 % (10.0-50.0); Mean Corpuscular Hemoglobin 30.4 pg (28.0-32.0); Mean Corpuscular Hgb Conc. 34.3 g/dL (32.0-36.0); Neutrophils # (auto) 10.6 10 ^3/uL (1.6-8.6); White Blood Cell 12.7 10^3/uL (4.4-10.8)
[2021-09-13 05:36] LABS: Potassium 3.8 mmol/L (3.5-5.1)
[2021-09-13 05:40] LABS: Albumin 1.3 g/dL (3.4-5.0); BUN/Creatinine Ratio 16.4; Calcium 7.6 mg/dL (8.5-10.1)
[2021-09-13 05:44] LABS: Total Protein 5.9 g/dL (6.4-8.2)
[2021-09-13] MEDS: InsuLIN REG 1unit/0.01ml Soln (100units/ml) SC SCH ×4 (06:00→18:00)
[2021-09-13] MEDS: ACCU-CHEK COMFORT CURVE STRIP VI SCH ×4 (06:00→18:00)
[2021-09-13] MEDS: MIDAZOLAM DRIP 50 mg/50mL 50 ML IV SCH (06:45)
[2021-09-13] MEDS: NOREPINEPHRINE 8 MG/250ML KIT 250 ML IV SCH (07:30)
[2021-09-13] MEDS: VASOPRESSIN 50 UNITS in D5W 5% 247.5 ML IV SCH (08:00)
[2021-09-13] MEDS: EPINEPHrine HCL 250 ML IV SCH (08:00)
[2021-09-13] MEDS: PROPOFOL 100 ML IV SCH (08:30)
[2021-09-13] MEDS: PANTOPRAZOLE 40 MG/10 ML VIAL INJ IV SCH (09:06)
[2021-09-13] MEDS: DexAMETHasone SOD PHOS 10MG/1ML VIAL INJ IV SCH (09:06)
[2021-09-13] MEDS: ASCORBIC ACID 1,000 MG TAB PO SCH (09:07)
[2021-09-13] MEDS: THIAMINE 100mg/ml INJ (200mg/2ml VIAL) IV SCH (09:07)
[2021-09-13] MEDS: DOCUSATE ORAL LIQUID 100 MG/10 ML UD GT SCH ×2 (09:07→22:00)
[2021-09-13] MEDS: DOPamine 1600MCG/ML D5W 250 ML IV SCH ×2 (09:08→23:17)
[2021-09-13] MEDS: CHOLECALCIFEROL (VITD3) 2,000 UNIT CAP/TAB PO SCH (09:08)
[2021-09-13] MEDS: ZINC SULFATE 220mg CAP or TAB PO SCH (09:08)
[2021-09-13] MEDS: CEFEPIME 2 GM in SODIUM CHL 0.9% 50 ML IV SCH ×3 (12:07)
[2021-09-13] MEDS: PHENYLEPHRINE INJ 80 MG in SODIUM CHL 0.9% 242 ML IV SCH (19:30)
[2021-09-13] MEDS: fentaNYL Drip 2500mCg/250mlNS 250 ML IV SCH (23:00)
[2021-09-14] VITALS (108 sets, daily range): BP systolic 69–134; BP diastolic 36–63
[2021-09-14] MEDS: NOREPINEPHRINE 8 MG/250ML KIT 250 ML IV SCH (02:00)
[2021-09-14] MEDS: InsuLIN REG 1unit/0.01ml Soln (100units/ml) SC SCH ×5 (06:00→23:55)
[2021-09-14] MEDS: ACCU-CHEK COMFORT CURVE STRIP VI SCH ×5 (06:00→23:56)
[2021-09-14] MEDS ORDERED: SODIUM CHL 0.9% 1000 ML BAG XX ONE (07:00)
[2021-09-14] MEDS: PROPOFOL 100 ML IV SCH ×2 (07:10→20:58)
[2021-09-14] MEDS: VASOPRESSIN 50 UNITS in D5W 5% 247.5 ML IV SCH (08:00)
[2021-09-14] MEDS: EPINEPHrine HCL 250 ML IV SCH (08:00)
[2021-09-14 08:33] LABS: Basophils # (auto) 0.2 10 ^3/uL (0-0.2); Eosinophils # (auto) 0.8 10 ^3/uL (0-0.8); Eosinophils % (auto) 3.7 % (0.0-7.0); Hematocrit 36.3 % (41.0-53.0); Hemoglobin 12.1 g/dL (13.5-17.5); Lymphocytes # (auto) 1.1 10 ^3/uL (0.4-5.4); Lymphocytes % (auto) 4.8 % (10.0-50.0); Mean Corpuscular Hemoglobin 29.5 pg (28.0-32.0); Mean Corpuscular Hgb Conc. 33.2 g/dL (32.0-36.0); Mean Corpuscular Volume 88.8 fL (80.0-100.0); Monocytes # (auto) 1.2 10 ^3/uL (0-1.3); Monocytes % (auto) 5.2 % (0.0-12.0); Neutrophils # (auto) 19.3 10 ^3/uL (1.6-8.6); Neutrophils % (auto) 85.3 % (37.0-80.0); Red Blood Cells 4.09 10^6/uL (4.5-5.90); Red Cell Distribution Width 16.2 % (11.8-14.3); White Blood Cell 22.6 10^3/uL (4.4-10.8)
[2021-09-14 08:41] LABS: Potassium 3.6 mmol/L (3.5-5.1)
[2021-09-14] MEDS: MIDAZOLAM DRIP 50 mg/50mL 50 ML IV SCH (08:44)
[2021-09-14] MEDS: PANTOPRAZOLE 40 MG/10 ML VIAL INJ IV SCH (08:45)
[2021-09-14] MEDS: DOCUSATE ORAL LIQUID 100 MG/10 ML UD GT SCH ×2 (08:45→22:00)
[2021-09-14] MEDS: THIAMINE 100mg/ml INJ (200mg/2ml VIAL) IV SCH (08:46)
[2021-09-14] MEDS: DexAMETHasone SOD PHOS 10MG/1ML VIAL INJ IV SCH (08:46)
[2021-09-14] MEDS: ASCORBIC ACID 1,000 MG TAB PO SCH (08:47)
[2021-09-14] MEDS: ZINC SULFATE 220mg CAP or TAB PO SCH (08:47)
[2021-09-14] MEDS: CHOLECALCIFEROL (VITD3) 2,000 UNIT CAP/TAB PO SCH (08:47)
[2021-09-14 08:53] LABS: Albumin 1.5 g/dL (3.4-5.0); BUN/Creatinine Ratio 15.7; Bilirubin, Total 2.3 mg/dL (0.2-1.0); Total Protein 7.6 g/dL (6.4-8.2)
[2021-09-14] MEDS: CEFEPIME 2 GM in SODIUM CHL 0.9% 50 ML IV SCH ×4 (12:20→23:56)
[2021-09-14] MEDS: DOPamine 1600MCG/ML D5W 250 ML IV SCH (12:34)
[2021-09-14] MEDS: ROCURONIUM BROMIDE 1,000 MG in D5W 5% 150 ML IV SCH (18:41)
[2021-09-14] MEDS: PHENYLEPHRINE INJ 80 MG in SODIUM CHL 0.9% 242 ML IV SCH (19:30)
[2021-09-15] VITALS (101 sets, daily range): BP systolic 85–133; BP diastolic 42–60
[2021-09-15] MEDS: DOPamine 1600MCG/ML D5W 250 ML IV SCH ×2 (01:51→07:50)
[2021-09-15 05:51] LABS: Basophils # (auto) 0.1 10 ^3/uL (0-0.2); Eosinophils # (auto) 0.4 10 ^3/uL (0-0.8); Hemoglobin 9.6 g/dL (13.5-17.5); Lymphocytes # (auto) 0.6 10 ^3/uL (0.4-5.4); Monocytes # (auto) 0.6 10 ^3/uL (0-1.3)
[2021-09-15 05:55] LABS: Basophils % (auto) 0.6 % (0.0-2.0); Eosinophils % (auto) 2.8 % (0.0-7.0); Hematocrit 28.3 % (41.0-53.0); Lymphocytes % (auto) 4.8 % (10.0-50.0); Mean Corpuscular Hemoglobin 30.5 pg (28.0-32.0); Mean Corpuscular Hgb Conc. 33.8 g/dL (32.0-36.0); Mean Corpuscular Volume 90.2 fL (80.0-100.0); Monocytes % (auto) 4.6 % (0.0-12.0); Neutrophils # (auto) 11.7 10 ^3/uL (1.6-8.6); Neutrophils % (auto) 87.2 % (37.0-80.0); Red Blood Cells 3.13 10^6/uL (4.5-5.90); Red Cell Distribution Width 16.1 % (11.8-14.3); White Blood Cell 13.4 10^3/uL (4.4-10.8)
[2021-09-15] MEDS: ACCU-CHEK COMFORT CURVE STRIP VI SCH ×3 (06:00→18:27)
[2021-09-15] MEDS: InsuLIN REG 1unit/0.01ml Soln (100units/ml) SC SCH ×3 (06:00→18:00)
[2021-09-15 06:39] LABS: Potassium 4.2 mmol/L (3.5-5.1)
[2021-09-15 06:41] LABS: INR 1.06 (0.9-1.15); Partial Thromboplastin Time 31.3 sec (23.6-33.0)
[2021-09-15] MEDS: MIDAZOLAM DRIP 50 mg/50mL 50 ML IV SCH (06:45)
[2021-09-15 06:55] LABS: BUN/Creatinine Ratio 14.3; Calcium 7.3 mg/dL (8.5-10.1); Magnesium 2.4 mg/dL (1.6-2.6)
[2021-09-15] MEDS: VASOPRESSIN 50 UNITS in D5W 5% 247.5 ML IV SCH (07:49)
[2021-09-15] MEDS: NOREPINEPHRINE 8 MG/250ML KIT 250 ML IV SCH (07:49)
[2021-09-15] MEDS: EPINEPHrine HCL 250 ML IV SCH (07:49)
[2021-09-15] MEDS: fentaNYL Drip 2500mCg/250mlNS 250 ML IV SCH ×2 (07:50)
[2021-09-15] MEDS: PHENYLEPHRINE INJ 80 MG in SODIUM CHL 0.9% 242 ML IV SCH (07:50)
[2021-09-15] MEDS: ROCURONIUM BROMIDE 1,000 MG in D5W 5% 150 ML IV SCH (07:50)
[2021-09-15] MEDS: PROPOFOL 100 ML IV SCH (07:51)
[2021-09-15] MEDS: DOCUSATE ORAL LIQUID 100 MG/10 ML UD GT SCH ×2 (08:15→22:30)
[2021-09-15] MEDS: PANTOPRAZOLE 40 MG/10 ML VIAL INJ IV SCH (08:15)
[2021-09-15] MEDS: DexAMETHasone SOD PHOS 10MG/1ML VIAL INJ IV SCH (08:15)
[2021-09-15] MEDS: ZINC SULFATE 220mg CAP or TAB PO SCH (08:16)
[2021-09-15] MEDS: CHOLECALCIFEROL (VITD3) 2,000 UNIT CAP/TAB PO SCH (08:16)
[2021-09-15] MEDS: THIAMINE 100mg/ml INJ (200mg/2ml VIAL) IV SCH (08:16)
[2021-09-15] MEDS: ASCORBIC ACID 1,000 MG TAB PO SCH (08:16)
[2021-09-15] MEDS ORDERED: TPN PER PHARMACY 0 ML IV SCH (13:45)
[2021-09-15] MEDS: CEFEPIME 2 GM in SODIUM CHL 0.9% 50 ML IV SCH (14:39)
[2021-09-15 18:19] LABS: Pre Albumin 11.4 mg/dL (20.0-40.0)
[2021-09-15 18:30] LABS: Phosphorus 8.5 mg/dL (2.5-4.90)
[2021-09-15] MEDS ORDERED: AMINO ACID INFUSION IN D10W 1,000 ML IV NR (20:00)
[2021-09-16] VITALS (91 sets, daily range): BP systolic 86–161; BP diastolic 5–88
[2021-09-16] MEDS: DOPamine 1600MCG/ML D5W 250 ML IV SCH ×2 (04:25→15:35)
[2021-09-16] MEDS: InsuLIN REG 1unit/0.01ml Soln (100units/ml) SC SCH ×5 (06:00→23:54)
[2021-09-16] MEDS: ACCU-CHEK COMFORT CURVE STRIP VI SCH ×5 (06:00→23:55)
[2021-09-16] MEDS: MIDAZOLAM DRIP 50 mg/50mL 50 ML IV SCH (06:45)
[2021-09-16] MEDS ORDERED: SODIUM CHL 0.9% 1000 ML BAG XX ONE (07:00)
[2021-09-16] MEDS: NOREPINEPHRINE 8 MG/250ML KIT 250 ML IV SCH (07:30)
[2021-09-16] MEDS: VASOPRESSIN 50 UNITS in D5W 5% 247.5 ML IV SCH (08:00)
[2021-09-16] MEDS: EPINEPHrine HCL 250 ML IV SCH (08:00)
[2021-09-16] MEDS: fentaNYL Drip 2500mCg/250mlNS 250 ML IV SCH (08:15)
[2021-09-16] MEDS: ROCURONIUM BROMIDE 1,000 MG in D5W 5% 150 ML IV SCH (09:36)
[2021-09-16 09:59] LABS: Basophils # (auto) 0.1 10 ^3/uL (0-0.2); Basophils % (auto) 0.4 % (0.0-2.0); Eosinophils # (auto) 0.4 10 ^3/uL (0-0.8); Lymphocytes # (auto) 0.5 10 ^3/uL (0.4-5.4); Monocytes # (auto) 0.6 10 ^3/uL (0-1.3); Neutrophils # (auto) 12.3 10 ^3/uL (1.6-8.6)
[2021-09-16 10:00] LABS: Eosinophils % (auto) 2.7 % (0.0-7.0); Hematocrit 27.2 % (41.0-53.0); Lymphocytes % (auto) 3.6 % (10.0-50.0); Mean Corpuscular Hemoglobin 30.3 pg (28.0-32.0); Mean Corpuscular Hgb Conc. 33.3 g/dL (32.0-36.0); Mean Corpuscular Volume 90.9 fL (80.0-100.0); Monocytes % (auto) 4.1 % (0.0-12.0); Neutrophils % (auto) 89.2 % (37.0-80.0); Nucleated Red Blood Cells % 0.1 %; Red Blood Cells 2.99 10^6/uL (4.5-5.90); Red Cell Distribution Width 17.2 % (11.8-14.3); White Blood Cell 13.8 10^3/uL (4.4-10.8)
[2021-09-16] MEDS: CHOLECALCIFEROL (VITD3) 2,000 UNIT CAP/TAB PO SCH ×2 (10:00→18:04)
[2021-09-16] MEDS: DOCUSATE ORAL LIQUID 100 MG/10 ML UD GT SCH ×3 (10:00→21:26)
[2021-09-16] MEDS: ASCORBIC ACID 1,000 MG TAB PO SCH ×2 (10:00→18:03)
[2021-09-16] MEDS: ZINC SULFATE 220mg CAP or TAB PO SCH ×2 (10:00→18:03)
[2021-09-16 10:11] LABS: Albumin 1.2 g/dL (3.4-5.0); Calcium 7.3 mg/dL (8.5-10.1); Magnesium 3.5 mg/dL (1.6-2.6); Potassium 4.5 mmol/L (3.5-5.1)
[2021-09-16 10:15] LABS: BUN/Creatinine Ratio 13.5; Bilirubin, Total 1.3 mg/dL (0.2-1.0); Total Protein 6.1 g/dL (6.4-8.2)
[2021-09-16 10:46] LABS: Phosphorus 8.7 mg/dL (2.5-4.90)
[2021-09-16] MEDS: CEFEPIME 2 GM in SODIUM CHL 0.9% 50 ML IV SCH ×3 (15:25)
[2021-09-16] MEDS: PROPOFOL 100 ML IV SCH (15:27)
[2021-09-16] MEDS: PHENYLEPHRINE INJ 80 MG in SODIUM CHL 0.9% 242 ML IV SCH (15:36)
[2021-09-16] MEDS: PANTOPRAZOLE 40 MG/10 ML VIAL INJ IV SCH (18:03)
[2021-09-16] MEDS: THIAMINE 100mg/ml INJ (200mg/2ml VIAL) IV SCH (18:03)
[2021-09-16] MEDS: DexAMETHasone SOD PHOS 10MG/1ML VIAL INJ IV SCH (18:03)
[2021-09-16] MEDS ORDERED: TPN PER PHARMACY IV NR ×5 (20:00)
[2021-09-17] VITALS (99 sets, daily range): BP systolic 88–163; BP diastolic 42–69
[2021-09-17] MEDS: CEFEPIME 2 GM in SODIUM CHL 0.9% 50 ML IV SCH ×2 (00:13→12:30)
[2021-09-17] MEDS: InsuLIN REG 1unit/0.01ml Soln (100units/ml) SC SCH ×3 (05:43→17:29)
[2021-09-17] MEDS: ROCURONIUM BROMIDE 1,000 MG in D5W 5% 150 ML IV SCH (05:48)
[2021-09-17] MEDS: ACCU-CHEK COMFORT CURVE STRIP VI SCH ×3 (06:00→17:29)
[2021-09-17] MEDS: MIDAZOLAM DRIP 50 mg/50mL 50 ML IV SCH (06:45)
[2021-09-17] MEDS: DOPamine 1600MCG/ML D5W 250 ML IV SCH ×2 (06:59→20:16)
[2021-09-17] MEDS: EPINEPHrine HCL 250 ML IV SCH (08:00)
[2021-09-17] MEDS: VASOPRESSIN 50 UNITS in D5W 5% 247.5 ML IV SCH (08:00)
[2021-09-17] MEDS: NOREPINEPHRINE 8 MG/250ML KIT 250 ML IV SCH (08:07)
[2021-09-17 09:24] LABS: Basophils # (auto) 0 10 ^3/uL (0-0.2); Basophils % (auto) 0.1 % (0.0-2.0); Eosinophils # (auto) 0 10 ^3/uL (0-0.8); Hemoglobin 9.3 g/dL (13.5-17.5); Lymphocytes # (auto) 0.3 10 ^3/uL (0.4-5.4)
[2021-09-17 09:25] LABS: Eosinophils % (auto) 0.1 % (0.0-7.0); Hematocrit 28.4 % (41.0-53.0); Lymphocytes % (auto) 2.4 % (10.0-50.0); Mean Corpuscular Hgb Conc. 32.7 g/dL (32.0-36.0); Mean Corpuscular Volume 91.9 fL (80.0-100.0); Monocytes # (auto) 0.4 10 ^3/uL (0-1.3); Monocytes % (auto) 2.9 % (0.0-12.0); Neutrophils # (auto) 13.2 10 ^3/uL (1.6-8.6); Neutrophils % (auto) 94.5 % (37.0-80.0); Red Blood Cells 3.09 10^6/uL (4.5-5.90); Red Cell Distribution Width 17.1 % (11.8-14.3)
[2021-09-17] MEDS: THIAMINE 100mg/ml INJ (200mg/2ml VIAL) IV SCH (12:25)
[2021-09-17] MEDS: DOCUSATE ORAL LIQUID 100 MG/10 ML UD GT SCH (12:25)
[2021-09-17] MEDS: CHOLECALCIFEROL (VITD3) 2,000 UNIT CAP/TAB PO SCH (12:26)
[2021-09-17] MEDS: ZINC SULFATE 220mg CAP or TAB PO SCH (12:26)
[2021-09-17] MEDS: DexAMETHasone SOD PHOS 10MG/1ML VIAL INJ IV SCH (12:26)
[2021-09-17] MEDS: ASCORBIC ACID 1,000 MG TAB PO SCH (12:26)
[2021-09-17] MEDS: PANTOPRAZOLE 40 MG/10 ML VIAL INJ IV SCH (12:26)
[2021-09-17] MEDS: PROPOFOL 100 ML IV SCH (12:27)
[2021-09-17] MEDS: PHENYLEPHRINE INJ 80 MG in SODIUM CHL 0.9% 242 ML IV SCH (12:27)
[2021-09-17 12:57] LABS: Potassium 3.8 mmol/L (3.5-5.1)
[2021-09-17 13:16] LABS: Albumin 1.1 g/dL (3.4-5.0); BUN/Creatinine Ratio 13.4; Bilirubin, Total 1.4 mg/dL (0.2-1.0); Magnesium 2.3 mg/dL (1.6-2.6); Phosphorus 7.2 mg/dL (2.5-4.90); Total Protein 5.9 g/dL (6.4-8.2)
[2021-09-17] MEDS ORDERED: LACTULOSE 20Gm/30ML SOLN ONE (16:37)
[2021-09-17] MEDS ORDERED: LACTULOSE 20Gm/30ML SOLN PO ONE (16:45)
[2021-09-17] MEDS ORDERED: TPN PER PHARMACY IV NR ×10 (20:00)
[2021-09-17] MEDS: LACTULOSE 20Gm/30ML SOLN PO SCH (22:08)
[2021-09-18] VITALS (99 sets, daily range): BP systolic 93–139; BP diastolic 43–62
[2021-09-18] MEDS: ROCURONIUM BROMIDE 1,000 MG in D5W 5% 150 ML IV SCH ×2 (02:00→20:41)
[2021-09-18 05:25] LABS: Potassium 3.7 mmol/L (3.5-5.1)
[2021-09-18 05:38] LABS: Albumin 1.1 g/dL (3.4-5.0); BUN/Creatinine Ratio 12.9; Bilirubin, Total 1.1 mg/dL (0.2-1.0); Calcium 6.9 mg/dL (8.5-10.1); Magnesium 2.3 mg/dL (1.6-2.6); Phosphorus 6.5 mg/dL (2.5-4.90); Total Protein 5.6 g/dL (6.4-8.2)
[2021-09-18] MEDS: ACCU-CHEK COMFORT CURVE STRIP VI SCH ×4 (06:00→18:12)
[2021-09-18] MEDS: InsuLIN REG 1unit/0.01ml Soln (100units/ml) SC SCH ×4 (06:00→18:12)
[2021-09-18] MEDS: MIDAZOLAM DRIP 50 mg/50mL 50 ML IV SCH (06:45)
[2021-09-18] MEDS: NOREPINEPHRINE 8 MG/250ML KIT 250 ML IV SCH (07:30)
[2021-09-18] MEDS: VASOPRESSIN 50 UNITS in D5W 5% 247.5 ML IV SCH (08:00)
[2021-09-18] MEDS: EPINEPHrine HCL 250 ML IV SCH (08:00)
[2021-09-18] MEDS: DOPamine 1600MCG/ML D5W 250 ML IV SCH ×2 (08:10→20:41)
[2021-09-18 08:28] LABS: Basophils # (auto) 0 10 ^3/uL (0-0.2); Eosinophils # (auto) 0.2 10 ^3/uL (0-0.8); Hemoglobin 7.9 g/dL (13.5-17.5); Lymphocytes # (auto) 0.4 10 ^3/uL (0.4-5.4)
[2021-09-18 08:30] LABS: Basophils % (auto) 0.5 % (0.0-2.0); Eosinophils % (auto) 2.6 % (0.0-7.0); Hematocrit 23.7 % (41.0-53.0); Mean Corpuscular Hemoglobin 30.5 pg (28.0-32.0); Mean Corpuscular Hgb Conc. 33.4 g/dL (32.0-36.0); Mean Corpuscular Volume 91.2 fL (80.0-100.0); Monocytes # (auto) 0.5 10 ^3/uL (0-1.3); Monocytes % (auto) 5.6 % (0.0-12.0); Neutrophils # (auto) 7.2 10 ^3/uL (1.6-8.6); Neutrophils % (auto) 86.3 % (37.0-80.0); Nucleated Red Blood Cells % 0.1 %; Red Blood Cells 2.59 10^6/uL (4.5-5.90); White Blood Cell 8.3 10^3/uL (4.4-10.8)
[2021-09-18] MEDS: LACTULOSE 20Gm/30ML SOLN PO SCH ×2 (09:44→22:00)
[2021-09-18] MEDS: ZINC SULFATE 220mg CAP or TAB PO SCH (09:44)
[2021-09-18] MEDS: CHOLECALCIFEROL (VITD3) 2,000 UNIT CAP/TAB PO SCH (09:44)
[2021-09-18] MEDS: PANTOPRAZOLE 40 MG/10 ML VIAL INJ IV SCH (09:44)
[2021-09-18] MEDS: DexAMETHasone SOD PHOS 10MG/1ML VIAL INJ IV SCH (09:44)
[2021-09-18] MEDS: THIAMINE 100mg/ml INJ (200mg/2ml VIAL) IV SCH (09:44)
[2021-09-18] MEDS: ASCORBIC ACID 1,000 MG TAB PO SCH (09:44)
[2021-09-18] MEDS: PROPOFOL 100 ML IV SCH (12:00)
[2021-09-18] MEDS: CEFEPIME 2 GM in SODIUM CHL 0.9% 50 ML IV SCH ×3 (12:28)
[2021-09-18 14:19] LABS: Hepatitis A Ab IgM Negative; Hepatitis B Core IgM Negative
[2021-09-18 14:20] LABS: Hepatitis C Antibody Negative (Negative)
[2021-09-18] MEDS: fentaNYL Drip 2500mCg/250mlNS 250 ML IV SCH (15:30)
[2021-09-18] MEDS: PHENYLEPHRINE INJ 80 MG in SODIUM CHL 0.9% 242 ML IV SCH (19:30)
[2021-09-18] MEDS ORDERED: TPN*HIGH CONC* PER PHARMACY IV NR ×10 (20:00)
[2021-09-19] VITALS (81 sets, daily range): BP systolic 91–144; BP diastolic 43–72
[2021-09-19 05:41] LABS: Basophils % (auto) 0.6 % (0.0-2.0); Eosinophils # (auto) 0.2 10 ^3/uL (0-0.8); Neutrophils # (auto) 7.3 10 ^3/uL (1.6-8.6)
[2021-09-19 05:43] LABS: Albumin 1.2 g/dL (3.4-5.0); Basophils # (auto) 0 10 ^3/uL (0-0.2); Calcium 7.1 mg/dL (8.5-10.1); Eosinophils % (auto) 2.5 % (0.0-7.0); Hemoglobin 8.8 g/dL (13.5-17.5); Lymphocytes # (auto) 0.4 10 ^3/uL (0.4-5.4); Lymphocytes % (auto) 5.3 % (10.0-50.0); Magnesium 3.4 mg/dL (1.6-2.6); Mean Corpuscular Hemoglobin 31.3 pg (28.0-32.0); Mean Corpuscular Hgb Conc. 33.9 g/dL (32.0-36.0); Mean Corpuscular Volume 92.3 fL (80.0-100.0); Monocytes # (auto) 0.5 10 ^3/uL (0-1.3); Monocytes % (auto) 5.7 % (0.0-12.0); Neutrophils % (auto) 85.9 % (37.0-80.0); Potassium 4.1 mmol/L (3.5-5.1); Red Blood Cells 2.81 10^6/uL (4.5-5.90); Red Cell Distribution Width 16.4 % (11.8-14.3); White Blood Cell 8.5 10^3/uL (4.4-10.8)
[2021-09-19 05:46] LABS: BUN/Creatinine Ratio 14.3; Bilirubin, Total 0.9 mg/dL (0.2-1.0); Phosphorus 6.3 mg/dL (2.5-4.90); Total Protein 5.3 g/dL (6.4-8.2)
[2021-09-19] MEDS: ACCU-CHEK COMFORT CURVE STRIP VI SCH ×5 (06:00→23:34)
[2021-09-19] MEDS: fentaNYL Drip 2500mCg/250mlNS 250 ML IV SCH (06:30)
[2021-09-19] MEDS: MIDAZOLAM DRIP 50 mg/50mL 50 ML IV SCH (06:45)
[2021-09-19] MEDS ORDERED: SODIUM CHL 0.9% 1000 ML BAG XX ONE (07:00)
[2021-09-19] MEDS: NOREPINEPHRINE 8 MG/250ML KIT 250 ML IV SCH (07:30)
[2021-09-19] MEDS: EPINEPHrine HCL 250 ML IV SCH (08:00)
[2021-09-19] MEDS: VASOPRESSIN 50 UNITS in D5W 5% 247.5 ML IV SCH (08:00)
[2021-09-19] MEDS: InsuLIN REG 1unit/0.01ml Soln (100units/ml) SC SCH ×5 (08:13→23:36)
[2021-09-19] MEDS: THIAMINE 100mg/ml INJ (200mg/2ml VIAL) IV SCH (09:43)
[2021-09-19] MEDS: DexAMETHasone SOD PHOS 10MG/1ML VIAL INJ IV SCH (09:43)
[2021-09-19] MEDS: LACTULOSE 20Gm/30ML SOLN PO SCH ×2 (09:44→21:15)
[2021-09-19] MEDS: ASCORBIC ACID 1,000 MG TAB PO SCH (09:44)
[2021-09-19] MEDS: PANTOPRAZOLE 40 MG/10 ML VIAL INJ IV SCH (09:44)
[2021-09-19] MEDS: ZINC SULFATE 220mg CAP or TAB PO SCH (09:44)
[2021-09-19] MEDS: CHOLECALCIFEROL (VITD3) 2,000 UNIT CAP/TAB PO SCH (09:44)
[2021-09-19] MEDS: PROPOFOL 100 ML IV SCH (11:45)
[2021-09-19] MEDS: DOPamine 1600MCG/ML D5W 250 ML IV SCH (11:45)
[2021-09-19] MEDS: CEFEPIME 2 GM in SODIUM CHL 0.9% 50 ML IV SCH ×4 (12:05→23:34)
[2021-09-19] MEDS ORDERED: VANCOMYCIN 1GM/250ML 250 ML IV ONE (16:00)
[2021-09-19] MEDS: ROCURONIUM BROMIDE 1,000 MG in D5W 5% 150 ML IV SCH (18:24)
[2021-09-19] MEDS: PHENYLEPHRINE INJ 80 MG in SODIUM CHL 0.9% 242 ML IV SCH (19:30)
[2021-09-19] MEDS ORDERED: TPN*HIGH CONC* PER PHARMACY IV NR ×8 (20:00)
[2021-09-20] VITALS (98 sets, daily range): BP systolic 100–137; BP diastolic 52–68
[2021-09-20 04:56] LABS: Basophils # (auto) 0.1 10 ^3/uL (0-0.2); Eosinophils # (auto) 0 10 ^3/uL (0-0.8); Eosinophils % (auto) 0.2 % (0.0-7.0); Lymphocytes # (auto) 0.4 10 ^3/uL (0.4-5.4); Mean Corpuscular Hemoglobin 30.6 pg (28.0-32.0)
[2021-09-20 05:01] LABS: Basophils % (auto) 0.7 % (0.0-2.0); Hematocrit 26.7 % (41.0-53.0); Lymphocytes % (auto) 3.5 % (10.0-50.0); Mean Corpuscular Hgb Conc. 33.7 g/dL (32.0-36.0); Mean Corpuscular Volume 90.7 fL (80.0-100.0); Monocytes # (auto) 0.5 10 ^3/uL (0-1.3); Neutrophils # (auto) 9.2 10 ^3/uL (1.6-8.6); Neutrophils % (auto) 90.6 % (37.0-80.0); Red Blood Cells 2.94 10^6/uL (4.5-5.90); Red Cell Distribution Width 16.6 % (11.8-14.3); White Blood Cell 10.1 10^3/uL (4.4-10.8)
[2021-09-20 05:24] LABS: Potassium 4.4 mmol/L (3.5-5.1)
[2021-09-20 05:32] LABS: Albumin 1.2 g/dL (3.4-5.0); BUN/Creatinine Ratio 14.8; Bilirubin, Total 0.8 mg/dL (0.2-1.0); Calcium 7.8 mg/dL (8.5-10.1); Magnesium 3.3 mg/dL (1.6-2.6); Phosphorus 4.5 mg/dL (2.5-4.90); Total Protein 6.3 g/dL (6.4-8.2)
[2021-09-20] MEDS: InsuLIN REG 1unit/0.01ml Soln (100units/ml) SC SCH ×4 (05:42→23:35)
[2021-09-20] MEDS: ACCU-CHEK COMFORT CURVE STRIP VI SCH ×4 (05:44→23:32)
[2021-09-20] MEDS: EPINEPHrine HCL 250 ML IV SCH (08:10)
[2021-09-20] MEDS: DOPamine 1600MCG/ML D5W 250 ML IV SCH ×2 (08:10→14:30)
[2021-09-20] MEDS: NOREPINEPHRINE 8 MG/250ML KIT 250 ML IV SCH (08:10)
[2021-09-20] MEDS: VASOPRESSIN 50 UNITS in D5W 5% 247.5 ML IV SCH (08:10)
[2021-09-20] MEDS: MIDAZOLAM DRIP 50 mg/50mL 50 ML IV SCH (08:10)
[2021-09-20] MEDS: fentaNYL Drip 2500mCg/250mlNS 250 ML IV SCH (09:16)
[2021-09-20] MEDS: THIAMINE 100mg/ml INJ (200mg/2ml VIAL) IV SCH (09:44)
[2021-09-20] MEDS: DexAMETHasone SOD PHOS 10MG/1ML VIAL INJ IV SCH (09:44)
[2021-09-20] MEDS: ASCORBIC ACID 1,000 MG TAB PO SCH (09:45)
[2021-09-20] MEDS: ZINC SULFATE 220mg CAP or TAB PO SCH (09:45)
[2021-09-20] MEDS: PANTOPRAZOLE 40 MG/10 ML VIAL INJ IV SCH (09:45)
[2021-09-20] MEDS: LACTULOSE 20Gm/30ML SOLN PO SCH ×2 (09:45→22:00)
[2021-09-20] MEDS: CHOLECALCIFEROL (VITD3) 2,000 UNIT CAP/TAB PO SCH (09:46)
[2021-09-20] MEDS: CEFEPIME 2 GM in SODIUM CHL 0.9% 50 ML IV SCH ×2 (11:55→23:31)
[2021-09-20] MEDS: PROPOFOL 100 ML IV SCH (12:10)
[2021-09-20] MEDS: ROCURONIUM BROMIDE 1,000 MG in D5W 5% 150 ML IV SCH (14:36)
[2021-09-20] MEDS: PHENYLEPHRINE INJ 80 MG in SODIUM CHL 0.9% 242 ML IV SCH (19:30)
[2021-09-20] MEDS ORDERED: TPN*HIGH CONC* PER PHARMACY IV NR ×8 (20:00)
[2021-09-21] VITALS (99 sets, daily range): BP systolic 75–156; BP diastolic 35–78
[2021-09-21] MEDS: fentaNYL Drip 2500mCg/250mlNS 250 ML IV SCH (00:16)
[2021-09-21 05:10] LABS: Eosinophils # (auto) 0.1 10 ^3/uL (0-0.8); Eosinophils % (auto) 0.9 % (0.0-7.0); Hemoglobin 8.1 g/dL (13.5-17.5); Lymphocytes # (auto) 0.5 10 ^3/uL (0.4-5.4); Monocytes # (auto) 0.5 10 ^3/uL (0-1.3)
[2021-09-21 05:13] LABS: Basophils # (auto) 0 10 ^3/uL (0-0.2); Basophils % (auto) 0.4 % (0.0-2.0); Hematocrit 24.4 % (41.0-53.0); Lymphocytes % (auto) 5.5 % (10.0-50.0); Mean Corpuscular Hemoglobin 30.1 pg (28.0-32.0); Mean Corpuscular Volume 91.1 fL (80.0-100.0); Monocytes % (auto) 5.9 % (0.0-12.0); Neutrophils # (auto) 7.5 10 ^3/uL (1.6-8.6); Neutrophils % (auto) 87.3 % (37.0-80.0); Nucleated Red Blood Cells % 0.1 %; Red Blood Cells 2.68 10^6/uL (4.5-5.90); White Blood Cell 8.6 10^3/uL (4.4-10.8)
[2021-09-21 05:26] LABS: Albumin 1.1 g/dL (3.4-5.0); Calcium 8.1 mg/dL (8.5-10.1); Magnesium 3.1 mg/dL (1.6-2.6); Potassium 4.2 mmol/L (3.5-5.1)
[2021-09-21 05:31] LABS: BUN/Creatinine Ratio 16.3; Bilirubin, Total 0.7 mg/dL (0.2-1.0); Phosphorus 5.2 mg/dL (2.5-4.90); Pre Albumin 14.2 mg/dL (20.0-40.0); Total Protein 6.2 g/dL (6.4-8.2)
[2021-09-21] MEDS: InsuLIN REG 1unit/0.01ml Soln (100units/ml) SC SCH ×4 (05:38→23:19)
[2021-09-21] MEDS: ACCU-CHEK COMFORT CURVE STRIP VI SCH ×4 (05:38→23:19)
[2021-09-21] MEDS ORDERED: SODIUM CHL 0.9% 1000 ML BAG XX ONE (07:00)
[2021-09-21] MEDS: DOPamine 1600MCG/ML D5W 250 ML IV SCH ×2 (07:45→17:15)
[2021-09-21] MEDS: EPINEPHrine HCL 250 ML IV SCH (07:45)
[2021-09-21] MEDS: NOREPINEPHRINE 8 MG/250ML KIT 250 ML IV SCH (07:45)
[2021-09-21] MEDS: VASOPRESSIN 50 UNITS in D5W 5% 247.5 ML IV SCH (07:45)
[2021-09-21] MEDS: MIDAZOLAM DRIP 50 mg/50mL 50 ML IV SCH (07:45)
[2021-09-21] MEDS: THIAMINE 100mg/ml INJ (200mg/2ml VIAL) IV SCH (10:00)
[2021-09-21] MEDS: ZINC SULFATE 220mg CAP or TAB PO SCH (10:01)
[2021-09-21] MEDS: ASCORBIC ACID 1,000 MG TAB PO SCH (10:01)
[2021-09-21] MEDS: LACTULOSE 20Gm/30ML SOLN PO SCH ×2 (10:01→21:33)
[2021-09-21] MEDS: DexAMETHasone SOD PHOS 10MG/1ML VIAL INJ IV SCH (10:01)
[2021-09-21] MEDS: PANTOPRAZOLE 40 MG/10 ML VIAL INJ IV SCH (10:01)
[2021-09-21] MEDS: ROCURONIUM BROMIDE 1,000 MG in D5W 5% 150 ML IV SCH (10:02)
[2021-09-21] MEDS: CHOLECALCIFEROL (VITD3) 2,000 UNIT CAP/TAB PO SCH (10:02)
[2021-09-21] MEDS: PROPOFOL 100 ML IV SCH (12:00)
[2021-09-21] MEDS: CEFEPIME 2 GM in SODIUM CHL 0.9% 50 ML IV SCH ×2 (13:13→23:18)
[2021-09-21] MEDS: PHENYLEPHRINE INJ 80 MG in SODIUM CHL 0.9% 242 ML IV SCH (19:30)
[2021-09-21] MEDS ORDERED: TPN*HIGH CONC* PER PHARMACY IV NR ×7 (20:00)
[2021-09-22] VITALS (99 sets, daily range): BP systolic 90–154; BP diastolic 43–74
[2021-09-22 05:09] LABS: White Blood Cell 13.5 10^3/uL (4.4-10.8)
[2021-09-22 05:16] LABS: Hematocrit 24.3 % (41.0-53.0); Hemoglobin 8.2 g/dL (13.5-17.5); Mean Corpuscular Hemoglobin 31.1 pg (28.0-32.0); Mean Corpuscular Hgb Conc. 33.7 g/dL (32.0-36.0); Mean Corpuscular Volume 92.3 fL (80.0-100.0); Red Blood Cells 2.64 10^6/uL (4.5-5.90); Red Cell Distribution Width 17.4 % (11.8-14.3)
[2021-09-22 05:36] LABS: Potassium 4.9 mmol/L (3.5-5.1)
[2021-09-22 05:42] LABS: BUN/Creatinine Ratio 18.4; Bilirubin, Total 0.9 mg/dL (0.2-1.0); Calcium 8.4 mg/dL (8.5-10.1); Magnesium 2.4 mg/dL (1.6-2.6); Phosphorus 3.9 mg/dL (2.5-4.90); Total Protein 6.5 g/dL (6.4-8.2)
[2021-09-22 06:45] LABS: Basophils % (manual) 0 (0.0-2.0); Blast Cells 0; Metamyelocytes % 0; Myelocytes % 0; Promyelocytes % 0; Reactive Lymphocytes 0
[2021-09-22] MEDS: ROCURONIUM BROMIDE 1,000 MG in D5W 5% 150 ML IV SCH (07:00)
[2021-09-22] MEDS: NOREPINEPHRINE 8 MG/250ML KIT 250 ML IV SCH (07:30)
[2021-09-22] MEDS: VASOPRESSIN 50 UNITS in D5W 5% 247.5 ML IV SCH (08:00)
[2021-09-22] MEDS: EPINEPHrine HCL 250 ML IV SCH (08:00)
[2021-09-22] MEDS: InsuLIN REG 1unit/0.01ml Soln (100units/ml) SC SCH ×4 (09:45→23:55)
[2021-09-22] MEDS: MIDAZOLAM DRIP 50 mg/50mL 50 ML IV SCH (09:45)
[2021-09-22] MEDS: DOPamine 1600MCG/ML D5W 250 ML IV SCH ×2 (09:45→19:49)
[2021-09-22] MEDS: fentaNYL Drip 2500mCg/250mlNS 250 ML IV SCH ×2 (09:45→11:10)
[2021-09-22] MEDS: ACCU-CHEK COMFORT CURVE STRIP VI SCH ×4 (09:45→23:57)
[2021-09-22] MEDS: DexAMETHasone SOD PHOS 10MG/1ML VIAL INJ IV SCH (09:50)
[2021-09-22] MEDS: PANTOPRAZOLE 40 MG/10 ML VIAL INJ IV SCH (09:50)
[2021-09-22] MEDS: LACTULOSE 20Gm/30ML SOLN PO SCH ×2 (09:50→20:19)
[2021-09-22] MEDS: THIAMINE 100mg/ml INJ (200mg/2ml VIAL) IV SCH (09:50)
[2021-09-22] MEDS: ASCORBIC ACID 1,000 MG TAB PO SCH (09:53)
[2021-09-22] MEDS: PROPOFOL 100 ML IV SCH (09:53)
[2021-09-22] MEDS: CEFEPIME 2 GM in SODIUM CHL 0.9% 50 ML IV SCH ×2 (12:22→23:53)
[2021-09-22 13:46] LABS: Band Neutrophils % (manual) 3; Eosinophils % (manual) 1 (0-7); Lymphocytes % (manual) 6 (10.0-50.0); Monocytes % (manual) 4 (0-12)
[2021-09-22] MEDS: PHENYLEPHRINE INJ 80 MG in SODIUM CHL 0.9% 242 ML IV SCH (16:47)
[2021-09-22] MEDS ORDERED: TPN*HIGH CONC* PER PHARMACY IV NR ×7 (20:00)
[2021-09-23] VITALS (98 sets, daily range): BP systolic 93–131; BP diastolic 44–61
[2021-09-23] MEDS: fentaNYL Drip 2500mCg/250mlNS 250 ML IV SCH ×2 (02:42→20:12)
[2021-09-23] MEDS: ROCURONIUM BROMIDE 1,000 MG in D5W 5% 150 ML IV SCH ×2 (03:12→23:24)
[2021-09-23 05:13] LABS: Basophils # (auto) 0 10 ^3/uL (0-0.2); Basophils % (auto) 0.2 % (0.0-2.0); Eosinophils # (auto) 0 10 ^3/uL (0-0.8); Eosinophils % (auto) 0.1 % (0.0-7.0); Hematocrit 23.7 % (41.0-53.0); Hemoglobin 7.7 g/dL (13.5-17.5); Lymphocytes # (auto) 0.5 10 ^3/uL (0.4-5.4); Lymphocytes % (auto) 4.7 % (10.0-50.0); Mean Corpuscular Hemoglobin 29.7 pg (28.0-32.0); Mean Corpuscular Hgb Conc. 32.5 g/dL (32.0-36.0); Mean Corpuscular Volume 91.6 fL (80.0-100.0); Monocytes # (auto) 0.8 10 ^3/uL (0-1.3); Monocytes % (auto) 6.8 % (0.0-12.0); Neutrophils % (auto) 88.2 % (37.0-80.0); Nucleated Red Blood Cells % 0.1 %; Red Blood Cells 2.59 10^6/uL (4.5-5.90); Red Cell Distribution Width 16.9 % (11.8-14.3); White Blood Cell 11.3 10^3/uL (4.4-10.8)
[2021-09-23 05:30] LABS: Albumin 1.2 g/dL (3.4-5.0); Calcium 8.7 mg/dL (8.5-10.1); Magnesium 2.3 mg/dL (1.6-2.6); Potassium 4.1 mmol/L (3.5-5.1)
[2021-09-23 05:32] LABS: BUN/Creatinine Ratio 19.7
[2021-09-23 05:35] LABS: Bilirubin, Total 0.8 mg/dL (0.2-1.0); Phosphorus 4.3 mg/dL (2.5-4.90); Total Protein 6.6 g/dL (6.4-8.2)
[2021-09-23] MEDS: ACCU-CHEK COMFORT CURVE STRIP VI SCH ×3 (06:26→17:36)
[2021-09-23] MEDS: MIDAZOLAM DRIP 50 mg/50mL 50 ML IV SCH (06:45)
[2021-09-23] MEDS ORDERED: SODIUM CHL 0.9% 1000 ML BAG XX ONE (07:00)
[2021-09-23] MEDS: InsuLIN REG 1unit/0.01ml Soln (100units/ml) SC SCH ×3 (07:20→17:36)
[2021-09-23] MEDS: NOREPINEPHRINE 8 MG/250ML KIT 250 ML IV SCH (07:30)
[2021-09-23] MEDS: EPINEPHrine HCL 250 ML IV SCH (08:00)
[2021-09-23] MEDS: VASOPRESSIN 50 UNITS in D5W 5% 247.5 ML IV SCH (08:00)
[2021-09-23] MEDS: DOPamine 1600MCG/ML D5W 250 ML IV SCH ×2 (08:58→22:23)
[2021-09-23] MEDS: DexAMETHasone SOD PHOS 10MG/1ML VIAL INJ IV SCH (09:13)
[2021-09-23] MEDS: LACTULOSE 20Gm/30ML SOLN PO SCH ×2 (09:13→21:40)
[2021-09-23] MEDS: ASCORBIC ACID 1,000 MG TAB PO SCH (09:13)
[2021-09-23] MEDS: THIAMINE 100mg/ml INJ (200mg/2ml VIAL) IV SCH (10:00)
[2021-09-23] MEDS: PROPOFOL 100 ML IV SCH (10:43)
[2021-09-23] MEDS: PHENYLEPHRINE INJ 80 MG in SODIUM CHL 0.9% 242 ML IV SCH (10:43)
[2021-09-23] MEDS: CEFEPIME 2 GM in SODIUM CHL 0.9% 50 ML IV SCH (12:17)
[2021-09-23] MEDS ORDERED: HEPARIN 1,000 UNITS/ml 1ML VIAL XX ONE ×2 (14:15)
[2021-09-23] MEDS ORDERED: VANCOMYCIN 1GM/250ML 250 ML IV ONE (18:00)
[2021-09-23] MEDS ORDERED: TPN*HIGH CONC* PER PHARMACY IV NR ×6 (20:00)
[2021-09-23] MEDS ORDERED: EPOETIN ALFA-EPBX 10,000 UNIT/1ML VIAL SC ONE (21:00)
[2021-09-24] VITALS (101 sets, daily range): BP systolic 90–132; BP diastolic 40–57
[2021-09-24] MEDS: CEFEPIME 2 GM in SODIUM CHL 0.9% 50 ML IV SCH ×3 (00:12→23:54)
[2021-09-24] MEDS: ACCU-CHEK COMFORT CURVE STRIP VI SCH ×5 (00:12→23:54)
[2021-09-24] MEDS: InsuLIN REG 1unit/0.01ml Soln (100units/ml) SC SCH ×5 (00:13→23:55)
[2021-09-24 05:07] LABS: Hemoglobin 7.6 g/dL (13.5-17.5); Mean Corpuscular Volume 91.3 fL (80.0-100.0); White Blood Cell 10.4 10^3/uL (4.4-10.8)
[2021-09-24 05:11] LABS: Hematocrit 22.7 % (41.0-53.0); Mean Corpuscular Hemoglobin 30.6 pg (28.0-32.0); Mean Corpuscular Hgb Conc. 33.5 g/dL (32.0-36.0); Red Blood Cells 2.49 10^6/uL (4.5-5.90); Red Cell Distribution Width 16.9 % (11.8-14.3)
[2021-09-24 05:13] LABS: Basophils % (manual) 0 (0.0-2.0); Blast Cells 0; Eosinophils % (manual) 0 (0-7); Metamyelocytes % 0; Myelocytes % 0; Promyelocytes % 0; Reactive Lymphocytes 0
[2021-09-24 05:22] LABS: Phosphorus 3.7 mg/dL (2.5-4.90)
[2021-09-24 05:28] LABS: Band Neutrophils % (manual) 3; Lymphocytes % (manual) 5 (10.0-50.0); Monocytes % (manual) 7 (0-12)
[2021-09-24] MEDS: MIDAZOLAM DRIP 50 mg/50mL 50 ML IV SCH (06:45)
[2021-09-24] MEDS: NOREPINEPHRINE 8 MG/250ML KIT 250 ML IV SCH (07:30)
[2021-09-24] MEDS: EPINEPHrine HCL 250 ML IV SCH (08:00)
[2021-09-24] MEDS: VASOPRESSIN 50 UNITS in D5W 5% 247.5 ML IV SCH (08:00)
[2021-09-24] MEDS: THIAMINE 100mg/ml INJ (200mg/2ml VIAL) IV SCH (10:00)
[2021-09-24] MEDS: DexAMETHasone SOD PHOS 10MG/1ML VIAL INJ IV SCH (10:00)
[2021-09-24] MEDS: ASCORBIC ACID 1,000 MG TAB PO SCH (10:00)
[2021-09-24] MEDS: LACTULOSE 20Gm/30ML SOLN PO SCH ×2 (10:00→21:06)
[2021-09-24 10:18] LABS: Albumin 1.2 g/dL (3.4-5.0); Calcium 8.5 mg/dL (8.5-10.1); Potassium 3.6 mmol/L (3.5-5.1)
[2021-09-24 10:21] LABS: Bilirubin, Total 0.9 mg/dL (0.2-1.0); Total Protein 6.6 g/dL (6.4-8.2)
[2021-09-24] MEDS: DOPamine 1600MCG/ML D5W 250 ML IV SCH (11:40)
[2021-09-24] MEDS: PROPOFOL 100 ML IV SCH (12:00)
[2021-09-24] MEDS: PHENYLEPHRINE INJ 80 MG in SODIUM CHL 0.9% 242 ML IV SCH (19:30)
[2021-09-24] MEDS: ROCURONIUM BROMIDE 1,000 MG in D5W 5% 150 ML IV SCH (19:36)
[2021-09-24] MEDS ORDERED: TPN*HIGH CONC* PER PHARMACY IV NR ×7 (20:00)
[2021-09-24] MEDS: fentaNYL Drip 2500mCg/250mlNS 250 ML IV SCH (21:05)
[2021-09-25] VITALS (101 sets, daily range): BP systolic 81–143; BP diastolic 37–63
[2021-09-25] MEDS: DOPamine 1600MCG/ML D5W 250 ML IV SCH ×2 (00:57→14:14)
[2021-09-25 05:12] LABS: Hemoglobin 7.4 g/dL (13.5-17.5); White Blood Cell 17.5 10^3/uL (4.4-10.8)
[2021-09-25 05:15] LABS: Hematocrit 22.4 % (41.0-53.0); Mean Corpuscular Hemoglobin 30.4 pg (28.0-32.0); Mean Corpuscular Volume 92.1 fL (80.0-100.0); Red Blood Cells 2.43 10^6/uL (4.5-5.90)
[2021-09-25 05:17] LABS: Basophils % (manual) 0 (0.0-2.0); Blast Cells 0; Eosinophils % (manual) 0 (0-7); Promyelocytes % 0; Reactive Lymphocytes 0
[2021-09-25 05:39] LABS: Albumin 1.3 g/dL (3.4-5.0); Calcium 8.9 mg/dL (8.5-10.1); Magnesium 2.3 mg/dL (1.6-2.6); Potassium 3.9 mmol/L (3.5-5.1)
[2021-09-25 05:41] LABS: Bilirubin, Total 0.8 mg/dL (0.2-1.0); Phosphorus 4.2 mg/dL (2.5-4.90); Total Protein 6.5 g/dL (6.4-8.2)
[2021-09-25] MEDS: ACCU-CHEK COMFORT CURVE STRIP VI SCH ×3 (05:51→18:00)
[2021-09-25] MEDS: NOREPINEPHRINE 8 MG/250ML KIT 250 ML IV SCH (05:52)
[2021-09-25 06:06] LABS: BUN/Creatinine Ratio 22.5
[2021-09-25] MEDS: InsuLIN REG 1unit/0.01ml Soln (100units/ml) SC SCH ×4 (06:09→23:39)
[2021-09-25] MEDS: MIDAZOLAM DRIP 50 mg/50mL 50 ML IV SCH (06:45)
[2021-09-25] MEDS ORDERED: SODIUM CHL 0.9% 1000 ML BAG XX ONE (07:00)
[2021-09-25 07:48] LABS: Band Neutrophils % (manual) 2; Lymphocytes % (manual) 6 (10.0-50.0); Metamyelocytes % 1; Monocytes % (manual) 9 (0-12); Myelocytes % 2
[2021-09-25] MEDS: EPINEPHrine HCL 250 ML IV SCH (08:00)
[2021-09-25] MEDS: VASOPRESSIN 50 UNITS in D5W 5% 247.5 ML IV SCH (08:00)
[2021-09-25] MEDS ORDERED: ALBUMIN 25% 100 ML IV ONE (08:52)
[2021-09-25] MEDS: SODIUM BICARBONATE 50ML VIAL 150 ML in D5W 5% 1,000 ML IV SCH (10:15)
[2021-09-25] MEDS: THIAMINE 100mg/ml INJ (200mg/2ml VIAL) IV SCH (10:40)
[2021-09-25] MEDS: DexAMETHasone SOD PHOS 10MG/1ML VIAL INJ IV SCH (10:40)
[2021-09-25] MEDS: ASCORBIC ACID 1,000 MG TAB PO SCH (10:41)
[2021-09-25] MEDS: LACTULOSE 20Gm/30ML SOLN PO SCH ×2 (10:41→22:00)
[2021-09-25] MEDS: PROPOFOL 100 ML IV SCH (12:00)
[2021-09-25] MEDS: CEFEPIME 2 GM in SODIUM CHL 0.9% 50 ML IV SCH ×2 (12:46→23:38)
[2021-09-25] MEDS: fentaNYL Drip 2500mCg/250mlNS 250 ML IV SCH (14:54)
[2021-09-25] MEDS: NOREPINEPHRINE BITARTRATE 32 MG in SODIUM CHL 0.9% 218 ML IV SCH (15:45)
[2021-09-25] MEDS: ROCURONIUM BROMIDE 1,000 MG in D5W 5% 150 ML IV SCH (15:48)
[2021-09-25] MEDS: PHENYLEPHRINE INJ 80 MG in SODIUM CHL 0.9% 242 ML IV SCH (19:30)
[2021-09-25] MEDS ORDERED: TPN*HIGH CONC* PER PHARMACY IV NR ×8 (20:00)
[2021-09-25] MEDS ORDERED: EPOETIN ALFA-EPBX 10,000 UNIT/1ML VIAL SC ONE (21:00)
[2021-09-26] VITALS (56 sets, daily range): BP systolic 56–158; BP diastolic 25–60
[2021-09-26] MEDS: SODIUM BICARBONATE 50ML VIAL 150 ML in D5W 5% 1,000 ML IV SCH ×2 (01:35→19:30)
[2021-09-26] MEDS: DOPamine 1600MCG/ML D5W 250 ML IV SCH ×2 (03:31→16:48)
[2021-09-26] MEDS: fentaNYL Drip 2500mCg/250mlNS 250 ML IV SCH ×2 (03:37→20:02)
[2021-09-26 05:50] LABS: Hematocrit 20.4 % (41.0-53.0); Mean Corpuscular Hemoglobin 29.3 pg (28.0-32.0); Mean Corpuscular Hgb Conc. 31.2 g/dL (32.0-36.0); Mean Corpuscular Volume 93.8 fL (80.0-100.0); Red Blood Cells 2.17 10^6/uL (4.5-5.90); Red Cell Distribution Width 17.4 % (11.8-14.3); White Blood Cell 16.6 10^3/uL (4.4-10.8)
[2021-09-26] MEDS: ACCU-CHEK COMFORT CURVE STRIP VI SCH ×5 (06:00→22:00)
[2021-09-26] MEDS: InsuLIN REG 1unit/0.01ml Soln (100units/ml) SC SCH ×4 (06:00→22:00)
[2021-09-26 06:01] LABS: Potassium 4.6 mmol/L (3.5-5.1)
[2021-09-26 06:06] LABS: Albumin 1.6 g/dL (3.4-5.0); BUN/Creatinine Ratio 23.5; Calcium 8.4 mg/dL (8.5-10.1); Magnesium 2.3 mg/dL (1.6-2.6)
[2021-09-26 06:08] LABS: Bilirubin, Total 1.2 mg/dL (0.2-1.0); Phosphorus 4.4 mg/dL (2.5-4.90); Total Protein 6.2 g/dL (6.4-8.2)
[2021-09-26 06:14] LABS: Basophils % (manual) 0 (0.0-2.0); Blast Cells 0; Eosinophils % (manual) 0 (0-7); Hemoglobin 6.4 g/dL (13.5-17.5); Promyelocytes % 0; Reactive Lymphocytes 0
[2021-09-26] MEDS: MIDAZOLAM DRIP 50 mg/50mL 50 ML IV SCH (06:45)
[2021-09-26] MEDS ORDERED: SODIUM CHL 0.9% 1000 ML BAG XX ONE (07:00)
[2021-09-26] MEDS: EPINEPHrine HCL 250 ML IV SCH (08:00)
[2021-09-26] MEDS: VASOPRESSIN 50 UNITS in D5W 5% 247.5 ML IV SCH (08:00)
[2021-09-26 08:05] LABS: Band Neutrophils % (manual) 1; Lymphocytes % (manual) 6 (10.0-50.0); Metamyelocytes % 1; Monocytes % (manual) 1 (0-12); Myelocytes % 2
[2021-09-26] MEDS: LACTULOSE 20Gm/30ML SOLN PO SCH ×2 (10:00→22:00)
[2021-09-26] MEDS: PROPOFOL 100 ML IV SCH (12:00)
[2021-09-26] MEDS: ROCURONIUM BROMIDE 1,000 MG in D5W 5% 150 ML IV SCH (12:00)
[2021-09-26] MEDS: NOREPINEPHRINE BITARTRATE 32 MG in SODIUM CHL 0.9% 218 ML IV SCH ×2 (15:45→22:15)
[2021-09-26] MEDS ORDERED: PANTOPRAZOLE 40 MG/10 ML VIAL INJ IV ONE (16:00)
[2021-09-26] MEDS: CEFEPIME 2 GM in SODIUM CHL 0.9% 50 ML IV SCH ×2 (16:46→23:53)
[2021-09-26] MEDS: THIAMINE 100mg/ml INJ (200mg/2ml VIAL) IV SCH (16:49)
[2021-09-26] MEDS: ASCORBIC ACID 1,000 MG TAB PO SCH (16:49)
[2021-09-26] MEDS ORDERED: VANCOMYCIN 500 MG in D5W 5% 100 ML IV ONE (17:00)
[2021-09-26] MEDS: PHENYLEPHRINE INJ 80 MG in SODIUM CHL 0.9% 242 ML IV SCH (19:30)
[2021-09-26] MEDS: TPN*HIGH CONC* PER PHARMACY IV NR ×6 (20:00)
[2021-09-26] MEDS ORDERED: EPOETIN ALFA-EPBX 10,000 UNIT/1ML VIAL SC ONE (21:00)
[2021-09-26] MEDS: PANTOPRAZOLE 40 MG/10 ML VIAL INJ IV SCH (22:00)
[2021-09-26] MEDS: INSULIN LANTUS (GLARGINE) 1 /0.01ml (100units/ml) SC SCH (22:00)
[2021-09-27] VITALS (100 sets, daily range): BP systolic 64–142; BP diastolic 29–61
[2021-09-27] MEDS: ACCU-CHEK COMFORT CURVE STRIP VI SCH ×6 (02:00→21:48)
[2021-09-27] MEDS: InsuLIN REG 1unit/0.01ml Soln (100units/ml) SC SCH ×6 (02:00→21:47)
[2021-09-27 05:31] LABS: Hemoglobin 7.5 g/dL (13.5-17.5); Red Blood Cells 2.53 10^6/uL (4.5-5.90); White Blood Cell 29.8 10^3/uL (4.4-10.8)
[2021-09-27 05:33] LABS: Hematocrit 23.5 % (41.0-53.0); Mean Corpuscular Hemoglobin 29.6 pg (28.0-32.0); Mean Corpuscular Hgb Conc. 31.9 g/dL (32.0-36.0); Mean Corpuscular Volume 93.1 fL (80.0-100.0); Red Cell Distribution Width 16.9 % (11.8-14.3)
[2021-09-27 05:39] LABS: Potassium 3.4 mmol/L (3.5-5.1)
[2021-09-27 05:48] LABS: Basophils % (manual) 0 (0.0-2.0); Blast Cells 0; Eosinophils % (manual) 0 (0-7); Metamyelocytes % 0; Promyelocytes % 0; Reactive Lymphocytes 0
[2021-09-27] MEDS: DOPamine 1600MCG/ML D5W 250 ML IV SCH ×2 (06:05→19:22)
[2021-09-27 06:12] LABS: Albumin 1.5 g/dL (3.4-5.0); Bilirubin, Total 1.5 mg/dL (0.2-1.0); Calcium 8.3 mg/dL (8.5-10.1); Magnesium 2.8 mg/dL (1.6-2.6); Phosphorus 3.8 mg/dL (2.5-4.90); Total Protein 6.1 g/dL (6.4-8.2)
[2021-09-27 06:25] LABS: BUN/Creatinine Ratio 25.1
[2021-09-27 07:15] LABS: Band Neutrophils % (manual) 11; Lymphocytes % (manual) 4 (10.0-50.0); Monocytes % (manual) 2 (0-12); Myelocytes % 2
[2021-09-27] MEDS ORDERED: ALBUMIN 25% 100 ML IV PRN (07:15)
[2021-09-27] MEDS: EPINEPHrine HCL 250 ML IV SCH (08:00)
[2021-09-27] MEDS: VASOPRESSIN 50 UNITS in D5W 5% 247.5 ML IV SCH (08:00)
[2021-09-27] MEDS: ROCURONIUM BROMIDE 1,000 MG in D5W 5% 150 ML IV SCH (08:12)
[2021-09-27] MEDS ORDERED: SODIUM CHL 0.9% 1000 ML BAG XX ONE (08:15)
[2021-09-27] MEDS: INSULIN LANTUS (GLARGINE) 1 /0.01ml (100units/ml) SC SCH ×2 (10:00→21:47)
[2021-09-27] MEDS: LACTULOSE 20Gm/30ML SOLN PO SCH ×2 (10:00→21:34)
[2021-09-27] MEDS: MIDAZOLAM DRIP 50 mg/50mL 50 ML IV SCH ×2 (11:00→15:27)
[2021-09-27] MEDS: PROPOFOL 100 ML IV SCH (12:00)
[2021-09-27] MEDS: POTASSIUM CHL 10MEQ/50ML 50 ML IV SCH ×2 (13:42→15:25)
[2021-09-27] MEDS: THIAMINE 100mg/ml INJ (200mg/2ml VIAL) IV SCH (13:43)
[2021-09-27] MEDS: PANTOPRAZOLE 40 MG/10 ML VIAL INJ IV SCH ×2 (13:44→21:34)
[2021-09-27] MEDS: ASCORBIC ACID 1,000 MG TAB PO SCH (13:44)
[2021-09-27] MEDS: CEFEPIME 2 GM in SODIUM CHL 0.9% 50 ML IV SCH ×2 (16:23→23:55)
[2021-09-27] MEDS: SODIUM BICARBONATE 50ML VIAL 150 ML in D5W 5% 1,000 ML IV SCH ×2 (16:23→23:35)
[2021-09-27] MEDS: PHENYLEPHRINE INJ 80 MG in SODIUM CHL 0.9% 242 ML IV SCH (19:30)
[2021-09-27] MEDS: TPN*HIGH CONC* PER PHARMACY IV NR ×6 (19:59)
[2021-09-27] MEDS ORDERED: TPN*HIGH CONC* PER PHARMACY IV NR ×6 (20:00)
[2021-09-27] MEDS ORDERED: EPOETIN ALFA-EPBX 10,000 UNIT/1ML VIAL SC ONE (21:00)
[2021-09-27] MEDS: NOREPINEPHRINE BITARTRATE 32 MG in SODIUM CHL 0.9% 218 ML IV SCH (23:55)
[2021-09-28] VITALS (104 sets, daily range): BP systolic 85–124; BP diastolic 4–51
[2021-09-28] MEDS: InsuLIN REG 1unit/0.01ml Soln (100units/ml) SC SCH ×4 (01:43→21:34)
[2021-09-28] MEDS: ACCU-CHEK COMFORT CURVE STRIP VI SCH ×5 (01:44→21:32)
[2021-09-28] MEDS: ROCURONIUM BROMIDE 1,000 MG in D5W 5% 150 ML IV SCH (04:24)
[2021-09-28 05:13] LABS: Red Blood Cells 2.26 10^6/uL (4.5-5.90)
[2021-09-28 05:16] LABS: Mean Corpuscular Hemoglobin 30.3 pg (28.0-32.0); Mean Corpuscular Hgb Conc. 32.8 g/dL (32.0-36.0); Mean Corpuscular Volume 92.7 fL (80.0-100.0); Red Cell Distribution Width 16.9 % (11.8-14.3); White Blood Cell 28.5 10^3/uL (4.4-10.8)
[2021-09-28 05:25] LABS: Calcium 8.2 mg/dL (8.5-10.1); Magnesium 2.1 mg/dL (1.6-2.6); Potassium 3.3 mmol/L (3.5-5.1)
[2021-09-28 05:28] LABS: BUN/Creatinine Ratio 26.4
[2021-09-28 05:30] LABS: Bilirubin, Total 2.1 mg/dL (0.2-1.0); Phosphorus 2.3 mg/dL (2.5-4.90); Total Protein 5.9 g/dL (6.4-8.2)
[2021-09-28 05:50] LABS: Hemoglobin 6.9 g/dL (13.5-17.5)
[2021-09-28 05:52] LABS: Basophils % (manual) 0 (0.0-2.0); Blast Cells 0; Eosinophils % (manual) 0 (0-7); Metamyelocytes % 0; Promyelocytes % 0; Reactive Lymphocytes 0
[2021-09-28 05:54] LABS: Pre Albumin 14.5 mg/dL (20.0-40.0)
[2021-09-28 07:16] LABS: Band Neutrophils % (manual) 17; Lymphocytes % (manual) 5 (10.0-50.0); Monocytes % (manual) 2 (0-12); Myelocytes % 4
[2021-09-28] MEDS: VASOPRESSIN 50 UNITS in D5W 5% 247.5 ML IV SCH (08:00)
[2021-09-28] MEDS: EPINEPHrine HCL 250 ML IV SCH (08:00)
[2021-09-28] MEDS: DOPamine 1600MCG/ML D5W 250 ML IV SCH ×2 (08:39→21:35)
[2021-09-28] MEDS: PANTOPRAZOLE 40 MG/10 ML VIAL INJ IV SCH ×2 (09:18→21:22)
[2021-09-28] MEDS: THIAMINE 100mg/ml INJ (200mg/2ml VIAL) IV SCH (09:18)
[2021-09-28] MEDS: ASCORBIC ACID 1,000 MG TAB PO SCH (09:19)
[2021-09-28] MEDS: PROPOFOL 100 ML IV SCH (09:19)
[2021-09-28] MEDS: fentaNYL Drip 2500mCg/250mlNS 250 ML IV SCH ×2 (10:41→22:50)
[2021-09-28] MEDS: INSULIN LANTUS (GLARGINE) 1 /0.01ml (100units/ml) SC SCH ×2 (12:22→21:34)
[2021-09-28] MEDS: LACTULOSE 20Gm/30ML SOLN PO SCH ×2 (12:23→21:22)
[2021-09-28] MEDS ORDERED: POTASSIUM CHL 10MEQ/50ML 100 ML IV ONE (13:15)
[2021-09-28] MEDS: PHENYLEPHRINE INJ 80 MG in SODIUM CHL 0.9% 242 ML IV SCH (13:28)
[2021-09-28] MEDS: POTASSIUM CHL 10MEQ/50ML 50 ML IV SCH ×2 (13:31→14:40)
[2021-09-28] MEDS: CEFEPIME 2 GM in SODIUM CHL 0.9% 50 ML IV SCH (14:20)
[2021-09-28] MEDS: SODIUM BICARBONATE 50ML VIAL 150 ML in D5W 5% 1,000 ML IV SCH (14:22)
[2021-09-28] MEDS: ALBUMIN 25% 100 ML IV SCH (16:19)
[2021-09-28] MEDS ORDERED: TPN*HIGH CONC* PER PHARMACY IV NR ×6 (20:00)
[2021-09-29] VITALS (46 sets, daily range): BP systolic 65–111; BP diastolic 32–50
[2021-09-29] MEDS: ROCURONIUM BROMIDE 1,000 MG in D5W 5% 150 ML IV SCH (00:36)
[2021-09-29] MEDS: ALBUMIN 25% 100 ML IV SCH ×2 (00:38→06:21)
[2021-09-29] MEDS: SODIUM BICARBONATE 50ML VIAL 150 ML in D5W 5% 1,000 ML IV SCH ×2 (00:48→00:50)
[2021-09-29] MEDS: PHENYLEPHRINE INJ 80 MG in SODIUM CHL 0.9% 242 ML IV SCH (00:50)
[2021-09-29] MEDS: VASOPRESSIN 50 UNITS in D5W 5% 247.5 ML IV SCH (00:51)
[2021-09-29] MEDS: CEFEPIME 2 GM in SODIUM CHL 0.9% 50 ML IV SCH (01:13)
[2021-09-29] MEDS: InsuLIN REG 1unit/0.01ml Soln (100units/ml) SC SCH ×3 (02:03→10:00)
[2021-09-29] MEDS: ACCU-CHEK COMFORT CURVE STRIP VI SCH ×3 (02:04→10:00)
[2021-09-29 05:42] LABS: Mean Corpuscular Hgb Conc. 30.9 g/dL (32.0-36.0)
[2021-09-29 05:50] LABS: Mean Corpuscular Hemoglobin 29.9 pg (28.0-32.0); Mean Corpuscular Volume 96.7 fL (80.0-100.0); Red Blood Cells 2.07 10^6/uL (4.5-5.90); Red Cell Distribution Width 17.9 % (11.8-14.3)
[2021-09-29 06:00] LABS: Albumin 2.5 g/dL (3.4-5.0); Magnesium 2.9 mg/dL (1.6-2.6); Potassium 4.4 mmol/L (3.5-5.1)
[2021-09-29 06:18] LABS: Hemoglobin 6.2 g/dL (13.5-17.5); White Blood Cell 53.1 10^3/uL (4.4-10.8)
[2021-09-29 06:20] LABS: BUN/Creatinine Ratio 26.1; Basophils % (manual) 0 (0.0-2.0); Bilirubin, Total 4.2 mg/dL (0.2-1.0); Blast Cells 0; Eosinophils % (manual) 0 (0-7); Metamyelocytes % 0; Promyelocytes % 0; Reactive Lymphocytes 0; Total Protein 6.2 g/dL (6.4-8.2)
[2021-09-29] MEDS: MIDAZOLAM DRIP 50 mg/50mL 50 ML IV SCH (06:41)
[2021-09-29 07:59] LABS: Band Neutrophils % (manual) 7; Lymphocytes % (manual) 6 (10.0-50.0); Monocytes % (manual) 7 (0-12); Myelocytes % 6
[2021-09-29] MEDS: EPINEPHrine HCL 250 ML IV SCH ×2 (08:00→08:40)
[2021-09-29] MEDS: DOPamine 1600MCG/ML D5W 250 ML IV SCH (09:10)
[2021-09-29] MEDS: LACTULOSE 20Gm/30ML SOLN PO SCH ×2 (10:00→10:06)
[2021-09-29] MEDS ORDERED: MEROPENEM 500MG IVPB 50 ML IV SCH (10:00)
[2021-09-29] MEDS: ASCORBIC ACID 1,000 MG TAB PO SCH ×2 (10:00→10:06)
[2021-09-29] MEDS ORDERED: ALBUMIN 25% 100 ML IV PRN (10:00)
[2021-09-29] MEDS: INSULIN LANTUS (GLARGINE) 1 /0.01ml (100units/ml) SC SCH (10:00)
[2021-09-29] MEDS: THIAMINE 100mg/ml INJ (200mg/2ml VIAL) IV SCH (10:06)
[2021-09-29] MEDS: PANTOPRAZOLE 40 MG/10 ML VIAL INJ IV SCH (10:06)
[2021-09-29] MEDS ORDERED: TPN PER PHARMACY IV NR ×5 (20:00)
[2021-09-29] MEDS ORDERED: TPN*HIGH CONC* PER PHARMACY IV NR ×5 (20:00)
== END 2021-09-29 19:53 | DRG 870 ==
LOC: EDBD 19:17 → ER 19:26 → TELE 08-22 05:26 → DOU IN ICU 08-26 08:45 → ICU CENTRL 08-26 09:32 → DOU IN ICU 08-26 09:35
PROVIDERS: ADMIT Nurse Practitioner; ATTEND Internal Medicine Geriatric Medicine
PROC: 5A1955Z Respiratory Ventilation, Greater than 96 Consecutive Hours (ICD-10-PCS; principal; 2021-08-22)
PROC: 0BH17EZ Insertion of Endotracheal Airway into Trachea, Via Natural or Artificial Opening (ICD-10-PCS; 2021-08-22)
PROC: 06HM33Z Insertion of Infusion Device into Right Femoral Vein, Percutaneous Approach (ICD-10-PCS; 2021-08-22)
PROC: 5A09357 Assistance with Respiratory Ventilation, Less than 24 Consecutive Hours, Continuous Positive Airway Pressure (ICD-10-PCS; 2021-08-22)
PROC: XW033E5 Introduction of Remdesivir Anti-infective into Peripheral Vein, Percutaneous Approach, New Technology Group 5 (ICD-10-PCS; 2021-08-26)
PROC: 06HN33Z Insertion of Infusion Device into Left Femoral Vein, Percutaneous Approach (ICD-10-PCS; 2021-09-08)
PROC: 5A1D70Z Performance of Urinary Filtration, Intermittent, Less than 6 Hours Per Day (ICD-10-PCS; 2021-09-08)
PROC: 5A1D70Z Performance of Urinary Filtration, Intermittent, Less than 6 Hours Per Day (ICD-10-PCS; 2021-09-10)
PROC: 5A1D70Z Performance of Urinary Filtration, Intermittent, Less than 6 Hours Per Day (ICD-10-PCS; 2021-09-12)
PROC: 5A1D70Z Performance of Urinary Filtration, Intermittent, Less than 6 Hours Per Day (ICD-10-PCS; 2021-09-16)
PROC: 5A1D70Z Performance of Urinary Filtration, Intermittent, Less than 6 Hours Per Day (ICD-10-PCS; 2021-09-16)
PROC: 5A1D70Z Performance of Urinary Filtration, Intermittent, Less than 6 Hours Per Day (ICD-10-PCS; 2021-09-19)
PROC: 5A1D70Z Performance of Urinary Filtration, Intermittent, Less than 6 Hours Per Day (ICD-10-PCS; 2021-09-21)
PROC: 5A1D70Z Performance of Urinary Filtration, Intermittent, Less than 6 Hours Per Day (ICD-10-PCS; 2021-09-23)
PROC: 5A1D70Z Performance of Urinary Filtration, Intermittent, Less than 6 Hours Per Day (ICD-10-PCS; 2021-09-25)
PROC: 30233N1 Transfusion of Nonautologous Red Blood Cells into Peripheral Vein, Percutaneous Approach (ICD-10-PCS; 2021-09-26)
PROC: 5A1D70Z Performance of Urinary Filtration, Intermittent, Less than 6 Hours Per Day (ICD-10-PCS; 2021-09-27)
PROC: 30233K1 Transfusion of Nonautologous Frozen Plasma into Peripheral Vein, Percutaneous Approach (ICD-10-PCS; 2021-09-28)
PROC: 5A1D70Z Performance of Urinary Filtration, Intermittent, Less than 6 Hours Per Day (ICD-10-PCS; 2021-09-29)
DX: A41.9 Sepsis, unspecified organism (principal); U07.1 COVID-19; E11.10 Type 2 diabetes mellitus with ketoacidosis without coma; E43 Unspecified severe protein-calorie malnutrition; J12.82 Pneumonia due to coronavirus disease 2019; J96.01 Acute respiratory failure with hypoxia; R65.21 Severe sepsis with septic shock; G93.41 Metabolic encephalopathy; N17.0 Acute kidney failure with tubular necrosis; J98.11 Atelectasis; E87.0 Hyperosmolality and hypernatremia; G93.1 Anoxic brain damage, not elsewhere classified; Z99.11 Dependence on respirator [ventilator] status; K92.2 Gastrointestinal hemorrhage, unspecified; E66.9 Obesity, unspecified; N18.9 Chronic kidney disease, unspecified; E87.5 Hyperkalemia; Z66 Do not resuscitate; T38.0X5A Adverse effect of glucocorticoids and synthetic analogues, initial encounter; Z68.33 Body mass index [BMI] 33.0-33.9, adult; D69.6 Thrombocytopenia, unspecified; E11.21 Type 2 diabetes mellitus with diabetic nephropathy; E87.6 Hypokalemia; E87.70 Fluid overload, unspecified; B96.89 Other specified bacterial agents as the cause of diseases classified elsewhere; E11.22 Type 2 diabetes mellitus with diabetic chronic kidney disease; I12.9 Hypertensive chronic kidney disease with stage 1 through stage 4 chronic kidney disease, or unspecified chronic kidney disease; Z79.4 Long term (current) use of insulin
CPT/HCPCS: 36415; 36600; 70450; 71045; 80048; 80053; 80074; 80202; 81001; 82010; 82040; 82728; 82805; 82962; 83036; 83605; 83615; 83735; 83930; 84100; 84443; 84478; 85007; 85025; 85027; 85379; 85610; 85730; 86141; 86850; 86900; 86901; 86920; 87040; 87070; 87076; 87077; 87081; 87086; 87205; 87340; 87426; 90935; 93005; 94002; 94003; 94660; 95819; 96361; 96365; 96367; 99291; C9113; G0378; J0171; J0330; J0696; J1100; J1642; J1815; J2185; J2250; J2543; J2704; J7060; J7131; P9047